=== PATIENT | female | born 1975 | race Caucasian/White ===

== ENCOUNTER 2023-08-02 13:33 | Emergency (ER) | payer OTHER, SELFPAY ==
--- NOTE | ~2023-08-02 | CT_ITS ---
EXAMINATION: CT HEAD WITHOUT CONTRAST (STROKE PROTOCOL) CLINICAL INFORMATION: Stroke protocol. Intermittent right-sided weakness COMPARISON: None available. TECHNIQUE: Contiguous axial imaging was performed from the skull base to vertex without intravenous administration of contrast. This CT examination was performed using dose optimization techniques as appropriate, variously including the following: *Automated exposure control *Adjustment of mA and/or kV according to patient size (this includes techniques or standardized protocols for targeted exams where dose is matched to indication/reason for exam; i.e. extremities or head) *Use of iterative reconstruction technique DLP: 703 mGy-cm FINDINGS: No evidence for acute hemorrhage or mass effect. Turner/white matter differentiation is maintained. The ventricular system appears unremarkable. No appreciable extra-axial collections. Mastoids are unremarkable. Skull base and calvarium intact. There are multiple scalp nodules, largest of which is a partially calcific nodule near the right occiput series 4 image 9 at 2 cm. There is an eggshell type calcification in the fourth ventricle series 6 image 59 at 7.5 mm, of uncertain etiology. CT/CT head for stroke IMPRESSION: No hemorrhage or mass effect. Other incidental findings as noted above. This critical result was discussed with Patti William at 1356 hours on 08/02/2023. It was ascertained that the content and urgency of the report was understood at the time of direct communication.
--- NOTE | ~2023-08-02 | CT_ITS ---
EXAMINATION: CT ANGIOGRAM HEAD CT ANGIOGRAM NECK CLINICAL INFORMATION: Reason for Exam intermitent R sided weakness, aphasia COMPARISON: Same-day CT head TECHNIQUE: Initial noncontrast grain farmer imaging of the head and neck was performed. Comparison is made with noncontrast head CT from earlier today. Test bolus sequences followed by intravenous administration 70 mL of Omnipaque 350. Helical imaging was performed in the axial plane from the aortic arch to the skull vertex. Delayed postcontrast imaging of the head was also performed. The data was processed at the nanotechnology engineering technologist's workstation for generation of MIP sequences. Angled MIPs and volume rendered reformatted images were also generated at an offline 3D workstation. Stenoses are assessed in accordance with Fernandes et al. Quantification of Carotid Stenosis on CT Angiography. AJR 2006. 27(1):13-19. This CT examination was performed using dose optimization techniques as appropriate, variously including the following: *Automated exposure control *Adjustment of mA and/or kV according to patient size (this includes techniques or standardized protocols for targeted exams where dose is matched to indication/reason for exam; i.e. extremities or head) *Use of iterative reconstruction technique DLP: 1518.02 mGy-cm mGy-cm FINDINGS: CT HEAD: Peripherally calcified focus in the fourth ventricle is indeterminate. Please see separately dictated CT scan head for additional findings. Calcified subcutaneous lesions are noted. CTA HEAD: Anterior circulation: Right internal carotid artery: No hemodynamically significant stenosis. Right middle cerebral artery: No hemodynamically significant stenosis. Right anterior cerebral artery: No hemodynamically significant stenosis. Left internal carotid artery: No hemodynamically significant stenosis. Left middle cerebral artery: No hemodynamically significant stenosis. Left anterior cerebral artery: Fusiform prominence of the A1-A2 junction/anterior communicating artery. Posterior circulation: Right vertebral artery: No hemodynamically significant stenosis. Left vertebral artery: No hemodynamically significant stenosis. Basilar artery: No hemodynamically significant stenosis. Right posterior cerebral artery: origin. Patent. Left posterior cerebral artery: No hemodynamically significant stenosis. No high flow vascular malformation or significant aneurysmal dilatation is visualized. The major dural venous sinuses are grossly within normal limits given arterial technique. CTA NECK: Aortic arch: Normal anatomy. Right common carotid artery: No hemodynamically significant stenosis. Right proximal internal carotid artery: No hemodynamically significant stenosis. Right mid/distal internal carotid artery: No hemodynamically significant stenosis. Left common carotid artery: No hemodynamically significant stenosis. Left proximal internal carotid artery: No hemodynamically significant stenosis. Left mid/distal internal carotid artery: No hemodynamically significant stenosis. Right vertebral artery: No hemodynamically significant stenosis. Left vertebral artery: Mild focal dilatation at the level of C2 (6-423) CT NECK: Prior thyroidectomy. 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 CT/CT angio head neck stroke IMPRESSION: CT HEAD: Peripherally calcified lesion in the fourth ventricle is indeterminate with differential considerations including lesions such as a subependymoma. Finding can be further evaluated by MRI with and without contrast. CTA NECK: No hemodynamically significant stenosis. Focal mild dilatation of the left vertebral artery at the level of C2 indeterminate. Attention on follow-up is suggested. CTA HEAD: No proximal vessel occlusion or high-grade stenosis. Results discussed with at 14:25 on 08/02/2023.
--- NOTE | 2023-08-02 13:38 | ECG_ITS ---
Test Reason : stroke Blood Pressure : / mmHG Vent. Rate : 064 BPM Atrial Rate : 064 BPM P-R Int : 140 ms QRS Dur : 094 ms QT Int : 446 ms P-R-T Axes : 032 047 027 degrees QTc Int : 460 ms Normal sinus rhythm Normal ECG No previous ECGs available Referred By: Patti William Electronically Signed By:JUAREZ LOPEZ MD
[2023-08-02 13:40] VITALS: BMI 38.9
--- NOTE | 2023-08-02 13:56 | ED.NEUROSD ---
HPI - Neuro Symptoms/Deficit General Chief Complaint: Stroke Stated Complaint: STROKE ALERT,R WEAK,DROOP,SPEECH DEF,LKWT 1237,-TH Source: patient and old records reviewed Mode of arrival: EMS Limitations: no limitations History of Present Illness HPI Narrative: 48 yo female with PMH of hypothyroidism, anxiety chronic fatigue syndrome who comes in as stroke alert - she was seen at [facility] for this recently and transferred to rehab. She notes 2+ weeks of intermittent spasms and tremors on the right side with aphasia then the spasms and symptoms will go away. Her face on the R droops. She states she had a full work up at [facility] and was told it was anxiety by a neurologist. Her symptoms today are no different than what she has had in the past and just worked up for as a stroke. Onset (ago): week(s) (2+ weeks but today's episode 1230pm) Location: speech, right face, right arm and right leg History of same: Yes Severity: moderate Quality: weak Relieving factors: time and rest Exacerbating factors: none Context: sudden onset On Anticoagulants: No Associated symptoms: other (spasms) Treatments Prior to Arrival: none Related Data Allergies Allergy/AdvReac Type Severity Reaction Status Date / Time codeine Allergy Unknown Unknown Verified 08/02/23 14:13 Review of Systems Review of Systems: Constitutional : No Fever, No Chills, No Fatigue ENT/Mouth : No sore throat, No Rhinorrhea Eyes: No Eye Pain, No Swelling, No Redness Cardiovascular : No Chest Pain, No SOB, No Dyspnea on Exertion Respiratory : No Cough, No Sputum Gastrointestinal : No Nausea, No Vomiting, No Diarrhea, No abdominal Pain Genitourinary : No Dysuria, No Urinary Frequency, No Hematuria, Musculoskeletal : No joint pain, No Myalgias, No Joint Swelling Skin : No Skin Lesions, No rash Neuro : pos Weakness, No Numbness, No Dizziness, no Headache, pos aphasia, pos spasm Psych : No Anxiety/Panic, No Depression Heme/Lymph: No Bruising, No Bleeding,No Lymphadenopathy Endocrine : No Polyuria, No Polydipsia All other systems reviewed and are negative [facility] Past Medical History Source: old records reviewed Medical History Anxiety Hypothyroidism Social History Social History (Updated 08/02/23 @ 14:22 by Patti William DO) Patient Tobacco Use Status: Never used Tobacco Smoked in Last 30 Days: No Use of substances other than those prescribed or required for medical reasons: No Advance Directives: No Advance Directives Information Provided: Yes Patient : Yes Physical Exam Vital Signs: Vital Signs: Last Vital Signs Temp 97.9 F 08/02/23 14:10 Pulse 68 08/02/23 14:10 Resp 16 08/02/23 14:10 BP 139/63 08/02/23 14:10 Pulse Ox 100 08/02/23 14:10 O2 Del Method Room Air 08/02/23 14:10 BMI result Body Mass Index 38.9 Course Course Course Narrative: initially had R sided facial droop and R arm and leg weakness with spasms and word finding difficulties then rapidly cycled in and out it was not consistent. Reevaluation(s) Reevaluation #1: back to baseline now recheck exam no clonus did talk to mom who states she does not feel this is conversion disorder Reevaluation #2: [facility] notes show extensive prior Neurology work up including up in [place] ruled out for MG, EMG unclear results, [facility] 2021 negative workup, also shows issues with care at [facility] and family discord with Neurologist and hospitalist. Reevaluation #3: signed out to Dr. Woodard pending neurology input Medications Administered Discontinued Medications Generic Name Dose Route Start Last Admin Trade Name Joseq PRN Reason Stop Dose Admin Iohexol 70 ml 08/02/23 14:10 08/02/23 14:11 Iohexol 350 Mg/Ml 100 Ml Infus..Btl IV 08/02/23 14:11 70 ml ONCE ONE Administration Lorazepam 1 mg 08/02/23 15:45 08/02/23 15:50 Lorazepam 2 Mg/Ml Vial IVPUSH 08/02/23 15:46 1 mg STAT STA Administration Medical Decision Making Medical Decision Making MDM Narrative: 48 yo female with anxiety, chronic fatigue syndrome and hypothyroidism here with c/o very odd symptoms of spasms on R side and then word finding difficulties and then R sided hemiparesis and visual disturbances that last minutes to hours and rapidly fluctuate for weeks. She is having another episode. She tells me she just had a full stroke workup at [facility] including MRI and was told it was anxiety by a Neurologist. Given her rapidlly fluctuating symptoms and givent it is 2+ weeks I am not concerned for ischemic stroke and she is not a candidate for TNK. Possible anxiety, even seizures seem odd given the rapidity and then she talks normal during the conversation, unsure if there is an inflammatory issue or medication issue either - CT head, CTA labs and records from [facility] consulted. Differential Diagnosis Differential Diagnoses: The differential diagnosis associated with the presentation includes anxiety, seizures, inflammatory condition Admission/Observation Consideration of admission/observation: Escalation of care including admission/observation considered will ask Neurology to see patient Consult Healthcare Provider Management of the patient was discussed with: Probate Paralegal Lab Data [facility] Lab Attestation statement: I reviewed the patient's lab results. 08/02/23 13:47 08/02/23 13:47 Labs: Lab Results 08/02/23 08/02/23 Range/Units 13:47 15:00 WBC 8.0 (4.8-10.8) X10*3/uL RBC 4.70 (4.20-5.50) X10*6/uL Hgb 14.0 (12.0-16.0) g/dl Hct 42.1 (37.0-47.0) % MCV 89.6 (80.0-98.0) fL MCH 29.8 (27.0-33.0) pg MCHC 33.3 (31.0-35.0) g/dl RDW 12.6 (11.0-16.0) % Plt Count 263 (160-400) X10*3/uL MPV 10.9 (9.4-12.3) fL Immature Gran % (Auto) 0.3 (0.0-0.4) % Neut % (Auto) 65.8 (45-73) % Lymph % (Auto) 26.9 (20-40) % [place] % (Auto) 5.8 (2-11) % Eos % (Auto) 0.8 (0-4) % Baso % (Auto) 0.4 (0-2) % Lymph # (Auto) 2.1 (1.2-4.9) X10*3/uL [place] # (Auto) 0.5 (0.1-1.2) X10*3/uL Eos # (Auto) 0.1 (0.0-0.4) X10*3/uL Baso # (Auto) 0.0 (0.0-0.2) X10*3/uL Abs Immat Gran (auto) 0.02 (0.00-0.03) X10*3/uL Absolute Neuts (auto) 5.3 (2.0-8.3) x10*3/uL Absolute Nucleated RBC 0.000 (0.0-0.012) X10*3/uL Nucleated RBC % (auto) 0.0 (0.0-0.2) /100WBC ESR 17 (0-20) MM/HR PT 12.5 (11.1-13.3) SEC INR 1.0 (0.9-1.1) Sodium 138 (135-145) mmol/L Potassium 3.7 (3.3-5.1) mmol/L Chloride 106 (96-108) mmol/L Carbon Dioxide 24 (22-29) mmol/L Anion Gap 12 (12-20) BUN 8 L (9-16) mg/dL Creatinine 0.66 (0.5-1.4) mg/dL Estim Creat Clear Calc 140.8 Estimated GFR > 60 Random Glucose 106 (60-115) mg/dL Calcium 8.6 (8.4-10.2) mg/dL Magnesium 2.2 (1.6-2.6) mg/dL Total Bilirubin 0.3 (0.0-1.0) mg/dL Direct Bilirubin 0.1 (0.0-0.5) mg/dL AST 12 (5-31) U/L ALT 17 (0-31) U/L Alkaline Phosphatase 48 (39-117) U/L Troponin I High Sens 7.2 (<3.5-17.0) ng/L C-Reactive Protein 2.06 H (< or = 0.50) mg/dL Total Protein 7.1 (6.5-8.0) g/dL Albumin 4.2 (3.5-5.0) g/dL Urine Opiates Screen Not Detected (Not Detect) Urine Fentanyl Screen Not Detected (Not Detect) Ur Barbiturates Screen Not Detected (Not Detect) Ur Phencyclidine Scrn Not Detected (Not Detect) Ur Amphetamines Screen Not Detected (Not Detect) U Benzodiazepines Scrn Not Detected (Not Detect) Urine Cocaine Screen Not Detected (Not Detect) U Marijuana (THC) Screen Not Detected (Not Detect) Ethyl Alcohol < 10 mg/dL COVID-19 (JANELLE) Negative (Negative) COVID-19 Clin Com See Note Independent Interpretation I performed an independent interpretation of an: EKG and CT Scan (no ICH) Interpretation: Rate: 64 Rhythm: NSR [place]: normal Normal P waves. Normal LORA. Normal QRS complex. ST T wave : normal, no ZAINAB qTC: normal prior studies: no acute ischemia The study has been interpreted contemporaneously by me. . Radiology Impression Discussion of test interpretation with radiology: I discussed test interpretation with the radiologist and I have reviewed the radiologist's reading. Radiologist Impression: no acute findings no ICH 156pm on dry CT scan CTA 225pm External Record Review External record reviewed: Outpatient record NIH Stroke Scale Internal: Initial- Upon Arrival Level of Consciousness: Alert Level of Consciousness Questions: Answers both questions correctly Level of Consciousness Commands: Performs both tasks correctly Best Gaze: Normal Visual: No visual loss Facial Palsy: Normal Motor Arm (Right): No drift Motor Arm (Left): No drift Motor Leg (Right): No drift Motor Leg (Left): No drift Limb Ataxia: Absent Sensory: Normal Best Language: No aphasia Dysarthia: Normal Extinction and Inattention: No abnormality Score: 0 Discharge Plan Discharge Clinical Impression: Tremors of nervous system Patient Disposition: Still a Patient
[2023-08-02 13:59] LABS: Basophils Percent Auto 0.4 % (0-2); Eosinophils Absolute Auto 0.1 X10*3/uL (0.0-0.4); Eosinophils Percent Auto 0.8 % (0-4); Hematocrit 42.1 % (37.0-47.0); Imm Gran Abs Auto 0.02 X10*3/uL (0.00-0.03); Imm Gran Pct Auto 0.3 % (0.0-0.4); Lymphocytes Absolute Auto 2.1 X10*3/uL (1.2-4.9); Lymphocytes Percent Auto 26.9 % (20-40); MANUAL DIFF FLAG NO; Mean Corpuscular HGB Conc 33.3 g/dl (31.0-35.0); Mean Corpuscular Hemoglobin 29.8 pg (27.0-33.0); Mean Corpuscular Volume 89.6 fL (80.0-98.0); Mean Platelet Volume 10.9 fL (9.4-12.3); Monocytes Absolute Auto 0.5 X10*3/uL (0.1-1.2); Monocytes Percent Auto 5.8 % (2-11); Neutrophils Absolute Auto 5.3 x10*3/uL (2.0-8.3); Neutrophils Percent Auto 65.8 % (45-73); Platelet Count 263 X10*3/uL (160-400); Red Cell Distribution Width 12.6 % (11.0-16.0)
[2023-08-02 14:10] VITALS: BP 139/63; PULSE 68; RESP 16; TEMP 36.6; O2SAT 100; BMI 38.9
[2023-08-02] MEDS: iohexoL 350 MG/ML 100 ML INFUS..BTL 70 ML IV (14:11)
[2023-08-02 14:12] LABS: Prothrombin Time 12.5 SEC (11.1-13.3)
[2023-08-02 14:23] LABS: Alanine Aminotransferase 17 U/L (0-31); Albumin Level 4.2 g/dL (3.5-5.0); Alkaline Phosphatase 48 U/L (39-117); Anion Gap 12 (12-20); Aspartate Amino Transferase 12 U/L (5-31); Bilirubin Direct 0.1 mg/dL (0.0-0.5); Bilirubin Total 0.3 mg/dL (0.0-1.0); Blood Urea Nitrogen 8 mg/dL (9-16); C Reactive Protein 2.06 mg/dL (< or = 0.50); Calcium 8.6 mg/dL (8.4-10.2); Carbon Dioxide 24 mmol/L (22-29); Chloride 106 mmol/L (96-108); Creatinine Clr Calc Pharmacy 140.8; Estimated Glomerular Filt Rate > 60; Ethanol < 10 mg/dL; Glucose Random 106 mg/dL (60-115); Magnesium 2.2 mg/dL (1.6-2.6); Potassium 3.7 mmol/L (3.3-5.1); Sodium 138 mmol/L (135-145); Total Protein 7.1 g/dL (6.5-8.0)
[2023-08-02 14:24] LABS: Troponin-I High Sensitivity 7.2 ng/L (<3.5-17.0)
--- OUTSIDE RECORDS SUMMARY | 2023-08-02 14:29 | XMS_ITS | Continuity of Care Document ---
Author Name Unknown Organization [facility]in Address [address] [place] [address]- Care Team Providers Care Hide Dropper Name Role Phone Jaspreet Guerrero DO Primary Care Physician [place] [facility] [place] 06/26/23 - 07/26/23 [facility] [address] [place] [address]- Allergies, Adverse Reactions, Alerts Substance Reaction Severity Status codeine Nausea Mild Active Medications Albuterol (Eqv-ProAir HFA) Inhalation, Every 6 hours, 0 Refills, Maintenance, 05/22/23 14:26:00 EDT, Partial fill upon patientrequest if the prescription is for a schedule II opioid drug. Start Date: 05/22/23 Status: Ordered Allergy (Loratadine) = 10 mg, By Mouth, Daily, 0 Refills, Maintenance, 05/22/23 14:27:00 EDT, Partial fill upon patient request if the prescription is for a schedule II opioid drug. Start Date: 05/22/23 Status: Ordered citalopram 20 mg oral tablet 20 mg, 1, tablet, By Mouth, Daily, Refills 0, Maintenance, 05/22/23 14:26:00 EDT, Partial fill uponpatient request if the prescription is for a schedule II opioid drug. Start Date: 05/22/23 Status: Ordered ethinyl estradiol-norethindrone 20 mcg-1 mg oral tablet 1 tablet, By Mouth, Daily, # 84 tablet, 3 Refills, Maintenance, 06/20/23 16:11:00 EDT, Tablet, [facility]/pharmacy #[id number], Partial fill upon patient request if the prescription is for a schedule II opioid drug., 1 tablet By Mouth Daily, 175, cm, 06/07/23 13:0... Start Date: 06/20/23 Status: Ordered levothyroxine 150 mcg (0.15 mg) oral tablet 1 tablet = 150 mcg, By Mouth, Daily, patient takes it 6 times a week, 0 Refills, Maintenance, 05/22/23 14:26:00 EDT, Partial fill upon patient request if the prescription is for a schedule II opioid drug. Start Date: 05/22/23 Status: Ordered Vitamin D3 2000 intl units oral capsule 1 capsule = 50 mcg, By Mouth, Daily, with food, # 100 capsule, 3 Refills, Maintenance, 06/07/23 13:40:00 EDT, Capsule, [facility]/pharmacy #[id number], Partial fill upon patient request if the prescription is fora schedule II opioid drug., 175, cm, 06/07/23 13:05... 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 Confirmed Active Long COVID Confirmed Active Constipation in female Confirmed Active Depression Confirmed Active Facial twitching Confirmed Active Chronic gastroesophageal reflux disease Confirmed Active H/O tinnitus Confirmed Active Hypersomnia Confirmed Active Migraine without aura Confirmed Active AGUILA (obstructive sleep apnea) Confirmed Active Perimenopause Confirmed Active Colon polyps Confirmed Active Bilateral sensorineural hearing loss Confirmed Active Severe obesity (BMI 35.0-39.9) with comorbidity Confirmed Active Weakness on right side of face Confirmed Active Social History Social History Type Response Smoking Status Never (less than 100 in lifetime) entered on: 05/22/23 Sex Female Patient Care team information Care Team Personnel Name: Charlette Bryan RN Position: [facility] RN Member Role: Primary Care Nurse Name: Madelaine Suazo Position: S RN Member Role: Primary Care Nurse Name: Izabel Sanchez RN Position: [facility] RN Member Role: Primary Care Nurse Name: Sandra Woodard RN Position: S RN Member Role: Primary Care Nurse Name: Jaspreet Guerrero DO Position: [facility] Physician - Primary Care Member Role: PCP Address: Address: [address] [place] [address]- Care Team Related Persons Name: KADEN PIZANO
--- OUTSIDE RECORDS SUMMARY | 2023-08-02 14:29 | XMS_ITS | Continuity of Care Document ---
Author Name Unknown Organization [facility] ter Address [address] [place] [id number]- Care Team Providers Care Dining Car Steward Name Role Phone Elizabeth LEE, Michelle Burns Primary Care Physician [place] [facility] [place]03[place]23 - 07/10/[address] [id number]- Encounter Diagnosis Unable to ambulate(Final) - 07/04/23 Aphasia(Final) - 07/04/23 Weakness(Final) - 07/04/23 Long COVID(Final) - 07/04/23 Chronic fatigue syndrome(Final) - 07/04/23 Chronic fatigue syndrome(Final) - 07/05/23 Long COVID(Final) - 07/05/23 Weakness(Final) - 07/05/23 Aphasia(Final) - 07/05/23 Discharge Disposition: A-Transfer SNF Attending Physician: Darrell Sarkar MD Admitting Physician: Petey Jarquin MD Referring Physician: Not on Staff, Referring MD Allergies, Adverse Reactions, Alerts Substance Reaction Severity [...] 3 Refills, Maintenance, 06/20/23 16:11:00 EDT, Tablet, [id number], Partial fill upon patient request if [...] opioid drug. Start Date: 05/22/23 Status: Ordered LORazepam 0.5 mg oral tablet 1 tablet = 0.5 mg, By Mouth, Every 8 hours, for 2 days, # 6 tablet, 0 Refills, Acute 07/12/23 11:39:00 EST, 07/10/23 11:39:00 EST, Tablet, Partial fill upon patient request if the prescription is fora schedule II opioid drug. Start Date: 07/10/23 Stop Date: 07/12/23 Status: Ordered Vitamin D3 2000 intl units oral capsule 1 capsule = 50 mcg, By Mouth, Daily, with food, # 100 capsule, 3 Refills, Maintenance, 06/07/23 13:40:00 EDT, Capsule, [id number], Partial fill upon patient request if the prescription is fora schedule II opioid drug., 175, cm, 06/07/23 13:05... 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 Confirmed Active Long COVID [...] on right side of face Confirmed Active Results Radiology Reports * Exam Date Time Procedure Performing Provider Status 07/05/23 5:17 AM MRI Brain W/O Contrast Erin Hyde; Griselda th (Verified) Notes: (MRI Brain W/O Contrast) Reason For Exam: Aphasia RESULT: MRI Brain W/O Contrast MRI Brain W/O Contrast INDICATION: Reason: Aphasia; Clinical Question(s): Infarction; Order Comment: Please see Reference Text for complete list of contraindications Infarction TECHNIQUE: MRI of the brain was performed without contrast utilizing sagittal T1, axial T2, axial FLAIR, axial SWAN, and axial DWI sequences. COMPARISON: CTA of the head and neck and CT scan of the head 07/04/2023 FINDINGS: BRAIN and EXTRA-AXIAL SPACES: The flow voids through the [place] of [place] are maintained, and thereis no restricted diffusion or abnormal susceptibility artifact. The brain parenchyma is normal in signal. The ventricles are normal in size. No mass effect or extra-axial fluid collection. The cervicomedullary junction is normal. EXTRACRANIAL SOFT TISSUES: Orbits are unremarkable. There are multiple nodular lesions within the right scalp subcutaneous fat which correlate with partially calcified and noncalcified foci on the prior CT, which can be correlated with physical examination. BONES: Marrow signal is preserved. IMPRESSION: No acute infarct. WSN: [id number] Ordering Physician: Casey mSiley Dictated By: Jorge Cruz MD Dictated Date/Time: 07/05/23 8:14 am Reviewed By: Jorge Cruz MD Signed By: Jorge Cruz MD Signed Date/Time: 07/05/23 8:14 am Transcribed By: MOSES Transcribed Date/Time: 07/05/23 8:10 am * Exam Date Time Procedure Performing Provider Status 07/04/23 5:[address] Angio Neck Michelle Green; Iglesia (Verified) Notes: (CT Angio Neck) Reason For Exam: Aneurysm, neck vessel(s);Other: RESULT: CT Angio Neck CT Angio Head, CT Angio Neck Hx of Present Illness: Pt reports monday after noon she had an onset of weakness, slow to speak, nausesa and body aches and feeling confused. She spent the weekend resting at her cousins house- call her dr julius who advised her to come to ED; Reason: Other:; Neuro deficit, acute, stroke suspected; Clinical Question(s): Other:; Hematoma Aneurysm / Other: TECHNIQUE: CT angiogram of the head and neck was performed after bolus administration of intravenous contrast. 100 mL of Omnipaque 300 was administered intravenously. Coronal and sagittal MIP reformatted images were obtained. Additional 3-D images were created on a separate workstation under concurrent supervision by the attending radiologist. All stenoses are measured using NASCET criteria. Weight-based protocol using automatic tube modulation was used to optimize exposure parameters. RADIATION DOSE PARAMETERS: CTDIvol Body: 12.07 mGy, DLP Body: 729 mGy*cm. COMPARISON: Noncontrast CT head performed concurrently. FINDINGS: CTA OF THE NECK: Arch: There is a three vessel aortic arch. The origins of the supra aortic vessels are patent. Right carotid system: The common carotid and cervical internal carotid arteries are patent. No stenosis (0%) by NASCET criteria. There is no dissection or aneurysm. Left carotid system: The common carotid and cervical internal carotid arteries are patent. No stenosis (0%) by NASCET criteria. There is no dissection or aneurysm. There is a co-dominant vertebral artery system. Right vertebral: No significant stenosis. No evidence of dissection or aneurysm. Left vertebral: No significant stenosis. No evidence of dissection or aneurysm. Other: Soft tissues and bones: No evidence of lymphadenopathy or mass. Thyroid is surgically absent. Visualized lung apices are clear. Mild degenerative changes of the cervical spine are noted, without acute osseous abnormality. A hemangioma is incidentally noted in the C6 vertebral body. CTA OF THE HEAD: Anterior circulation: Bilateral intracranial ICAs and their BETI and MCA branches are patent. There is no significant stenosis, proximal cutoff, aneurysm, or vascular malformation. Posterior circulation: Bilateral vertebral arteries, the basilar artery, and bilateral PICA, SCA, and HAIR BOILER OPERATOR branches are patent. There is predominantly supply to the right HAIR BOILER OPERATOR with hypoplastic right P1 segment. There is no significant stenosis, proximal cutoff, aneurysm, or vascular malformation. Veins: Major dural venous sinuses are patent. Other: Soft tissues and bones: No midline shift or effacement of the basal cisterns. No space-occupying hemorrhage. No territorial loss of turner-white matter differentiation. Orbits are unremarkable. There is mild scattered mucosal thickening in the paranasal sinuses without fluid levels. Mastoids are clear. Multiple well- circumscribed rounded nodules are seen in the scalp, including right parietal scalp and suboccipital scalp, some of which demonstrate internal calcification. This may reflect epidermal inclusion cysts or sebaceous cysts. IMPRESSION: No proximal occlusion or high grade stenosis in the major arteries of the head and neck. A similar preliminary report was provided by Laila. WSN: [id number] Ordering Physician: Norbert Gold Dictated By: Sharlene Rodriguez MD Dictated Date/Time: 07/05/23 8:12 am Reviewed By: Sharlene Rodriguez MD Signed By: Sharlene Rodriguez MD Signed Date/Time: 07/05/23 8:12 am Transcribed By: MOSES Transcribed Date/Time: 07/05/23 8:04 am * Exam Date Time Procedure Performing Provider Status 07/04/23 5:[address] Angio Head Michelle Green; Auth (Verified) Notes: (CT Angio Head) Reason For Exam: Neuro deficit, acute, stroke suspected;Other: RESULT: CT Angio Head CT Angio Head, CT Angio Neck Hx of Present Illness: Pt reports monday after noon she had an onset of weakness, slow to speak, nausesa and body aches and feeling confused. She spent the weekend resting at her cousins house- call her dr julius who advised her to come to ED; Reason: Other:; Neuro deficit, acute, stroke suspected; Clinical Question(s): Other:; Hematoma Aneurysm / Other: TECHNIQUE: CT angiogram of the head and neck was performed after bolus administration of intravenous contrast. 100 mL of Omnipaque 300 was administered intravenously. Coronal and sagittal MIP reformatted images were obtained. Additional 3-D images were created on a separate workstation under concurrent supervision by the attending radiologist. All stenoses are measured using NASCET criteria. Weight-based protocol using automatic tube modulation was used to optimize exposure parameters. RADIATION DOSE PARAMETERS: CTDIvol Body: 12.07 mGy, DLP Body: 729 mGy*cm. COMPARISON: Noncontrast CT head performed concurrently. FINDINGS: CTA OF THE NECK: Arch: There is a three vessel aortic arch. The origins of the supra aortic vessels are patent. Right carotid system: The common carotid and cervical internal carotid arteries are patent. No stenosis (0%) by NASCET criteria. There is no dissection or aneurysm. Left carotid system: The common carotid and cervical internal carotid arteries are patent. No stenosis (0%) by NASCET criteria. There is no dissection or aneurysm. There is a co-dominant vertebral artery system. Right vertebral: No significant stenosis. No evidence of dissection or aneurysm. Left vertebral: No significant stenosis. No evidence of dissection or aneurysm. Other: Soft tissues and bones: No evidence of lymphadenopathy or mass. Thyroid is surgically absent. Visualized lung apices are clear. Mild degenerative changes of the cervical spine are noted, without acute osseous abnormality. A hemangioma is incidentally noted in the C6 vertebral body. CTA OF THE HEAD: Anterior circulation: Bilateral intracranial ICAs and their BETI and MCA branches are patent. There is no significant stenosis, proximal cutoff, aneurysm, or vascular malformation. Posterior circulation: Bilateral vertebral arteries, the basilar artery, and bilateral PICA, SCA, and HAIR BOILER OPERATOR branches are patent. There is predominantly supply to the right HAIR BOILER OPERATOR with hypoplastic right P1 segment. There is no significant stenosis, proximal cutoff, aneurysm, or vascular malformation. Veins: Major dural venous sinuses are patent. Other: Soft tissues and bones: No midline shift or effacement of the basal cisterns. No space-occupying hemorrhage. No territorial loss of turner-white matter differentiation. Orbits are unremarkable. There is mild scattered mucosal thickening in the paranasal sinuses without fluid levels. Mastoids are clear. Multiple well- circumscribed rounded nodules are seen in the scalp, including right parietal scalp and suboccipital scalp, some of which demonstrate internal calcification. This may reflect epidermal inclusion cysts or sebaceous cysts. IMPRESSION: No proximal occlusion or high grade stenosis in the major arteries of the head and neck. A similar preliminary report was provided by [facility]. WSN: [id number] Ordering Physician: Norbert Gold Dictated By: Sharlene Rodriguez MD Dictated Date/Time: 07/05/23 8:12 am Reviewed By: Sharlene Rodriguez MD Signed By: Sharlene Rodriguez MD Signed Date/Time: 07/05/23 8:12 am Transcribed By: MOSES Transcribed Date/Time: 07/05/23 8:04 am * Exam Date Time Procedure Performing Provider Status 07/04/23 5:[address] Head/Brain W/O Contrast Michelle Green; Iglesia (Verified) Notes: (CT Head/Brain W/O Contrast) Reason For Exam: Neuro deficit, acute, stroke suspected;Other: RESULT: CT Head/Brain W/O Contrast CT Head/Brain W/O Contrast INDICATION: Hx of Present Illness: Pt reports monday after noon she had an onset of weakness, slow to speak, nausesa and body aches and feeling confused. She spent the weekend resting at her cousins house- call her dr today who advised her to come to ED; Reason: Other:; Neuro deficit, acute, strokesuspected; Clinical Question(s): Other:; Hematoma Infarction TECHNIQUE: Noncontrast head CT using axial technique and reconstructed in axial and coronal planes.Iterative reconstruction techniques are used to optimize dose and image quality. CTDIvol Head: 46.40 mGy, DLP Head: 772 mGy*cm. COMPARISON: None. FINDINGS: Hand Umbrella Tipper view findings, lines and tubes: None. BRAIN AND EXTRA-AXIAL SPACES: No parenchymal hemorrhage, midline shift, or mass effect. Turner-white matter differentiation is wellpreserved. No acute infarct. Ventricles, sulci, and basilar cisterns are normal. No white matter lesions. No subarachnoid hemorrhage. No subdural or epidural collection. Small incidental calcification along the inferior aspect of the fourth ventricle just above the whole back possibly representing calcified choroid plexus. CALVARIUM, SKULL BASE, AND SOFT TISSUES: No fractures or suspicious bony lesions. The paranasal sinuses and mastoid air cells are clear. Visualized orbits and globes are intact. The extracranial soft tissues are unremarkable. IMPRESSION: No acute intracranial pathology. No CT evidence for acute ischemic infarction. Dr. Gold notified of results at time of dictation. WSN: [id number] Ordering Physician: Norbert Gold Dictated By: Braulio Chang MD Dictated Date/Time: 07/04/23 5:10 pm Reviewed By: Braulio Chang MD Signed By: Braulio Chang MD Signed Date/Time: 07/04/23 5:10 pm Transcribed By: MOSES Transcribed Date/Time: 07/04/23 5:06 pm Vital Signs Most recent to oldest [Reference Range]: 1 2 3 Height 175 cm (07/10/23 1:06 PM) 175 cm (07/10/23 10:39 AM) 175 cm (07/10/23 7:07 AM) Weight 120.3 kg (07/06/23 11:51 AM) 120.3 kg (07/06/23 6:18 AM) 120.3 kg (07/06/23 4:20 AM) Oxygen Saturation [94-100 %] 100 % (07/10/23 1:06 PM) 98 % (07/10/23 10:39 AM) 98 % (07/10/23 7:07 AM) Pulse Rate [55-90 bpm] 73 bpm (07/10/23 1:06 PM) 65 bpm (07/10/23 10:39 AM) 63 bpm (07/10/23 7:07 AM) Body Mass Index [18.5-24.99 kg/m2] 39.28 kg/m2 *>HHI* (07/06/23 11:51 AM) 39.28 kg/m2 *>HHI* (07/06/23 6:18 AM) 39.28 kg/m2 *>HHI* (07/06/23 4:20 AM) Blood Pressure [90-138/55-84 mm Hg] 158/84mm Hg *H* (07/10/23 1:06 PM) 126/68mm Hg (07/10/23 10:39 AM) 126/58mm Hg (07/10/23 7:07 AM) Respiratory Rate [16-30 br/min] 18 br/min (07/10/23 1:06 PM) 18 br/min (07/10/23 10:39 AM) 20 br/min (07/10/23 7:07 AM) Temperature [96.8-100.4 DegF] 98.3 DegF (07/10/23 1:06 PM) 98.3 DegF (07/10/23 10:39 AM) 98.1 DegF (07/10/23 7:07 AM) Mode of Delivery (Oxygen) Room air (07/10/23 1:06 PM) Room air (07/10/23 10:39 AM) Room air (07/10/23 7:07 AM) Blood pressure sites Arm, left (07/10/23 1:06 PM) Arm, left (07/10/23 10:39 AM) Arm, left (07/10/23 7:07 AM) Temperature Route Oral (07/10/23 1:06 PM) Oral (07/10/23 10:39 AM) Oral (07/10/23 7:07 AM) Dry Weight 120.3 kg (07/06/23 11:51 AM) 120.3 kg (07/06/23 6:18 AM) 120.3 kg (07/06/23 4:20 AM) Weight Obtained Via Patient/family state d (07/05/23 10:00 AM) Dry Weight Obtained Via Patient/family s tated (07/03/23 3:39 PM) Social History Social History Type Response Smoking Status Never (less than 100 in lifetime) entered on: 05/22/23 Sex Female Admission evaluation note * Mathew Alexis MD, [facility]: PERFORM, MODIFY, MODIFY, MODIFY, MODIFY, MODIFY, MODIFY, MODIFY, MODIFY, MODIFY, MODIFY, MODIFY, MODIFY, MODIFY, MODIFY Event Display: Admission Note Authored Date: [id number] Patient: ??ELICEO CASTLE ? Age:??48 Years?Sex:??Female?:??1975?? Chief Complaint/Reason for Consultation Right sided weakness and aphasia History of Present Illness 48-year-old female with a past medical history of hypothyroidism, chronic fatigue syndrome, reported long COVID presents to the ED for right-sided weakness, aphasia, and??word finding difficulties. Patient reports that on??Monday??06/30 afternoon she started??to have??weakness??in the right arm, hand??and leg??where she was unable to walk. Along with these symptoms,??she reported??having??left sided facial spasms with mouth drooping??that lasted for 10 minutes, she also had??drooping??of the right eye lid for the same duration.?Her symptoms were also associated with??slurred speech,??dizzin ess,??and difficulty??in??chewing/swallowing food. Of note, the patient reported??that??she has been experiencing??weakness and fatigue ever since??her COVID-19??diagnosis in??October??2021, stevan feels that her recent symptoms are much worse now. ?? Upon arrival to the ED, the patient was afebrile, heart rate was 74 bpm, blood pressure was elevated at 145/75, patient was saturating well on room air at 100%.??Complete blood count was within normal limits, electrolytes within normal limits, creatinine was normal at 0.6, blood glucose was elevated at 143, TSH was normal at 1.26.?? Urinalysis showed slight bacteriuria and leukocytes, in additionto RBCs. 12-lead ECG did not show ischemic changes.??Head CT was negative for acute ischemic infarction,??head CT angiogram was done and the wet reading was negative for stenosis or dissection.??Patient received 975 mg of acetaminophen once, Reglan 10 mg IV once, and 1 L bolus of 0.9 normal saline. ?? Upon my evaluation, the patient is hemodynamically stable, has slow speech and does not show acute neurologic deficits except for difficulty in lifting her right leg. She denies chest pain, shortness of breath, palpitations, or dizziness, abdominal pain, or urinary symptoms. Review of Systems - CONSTITUTIONAL: Denies weight loss, fever and chills. - HEENT: Denies changes in vision and hearing. - RESPIRATORY: Denies SOB and cough. - CV: Denies palpitations and chest pain. - GI: +Constipation. Denies abdominal pain, nausea, vomiting, and diarrhea. - : Denies dysuria and urinary frequency. - MSK:??+Neck??heaviness. Denies??joint pain. - SKIN: Denies rash and pruritus. - NEUROLOGICAL: Denies headache and syncope. - PSYCHIATRIC: Denies recent changes in mood. Denies anxiety and depression. Objective Vital Signs?? Temperature: 98.4 DegF (07/04/23 19:30:00) Temperature Route: Oral (07/04/23:30:00) Pulse Rate: 71 bpm (07/04/23:30:00) Respiratory Rate:??15 br/min??Low (07/04/23 19:30:00) Systolic Blood Pressure: 129 mm Hg (07/04/23 19:30:00) Diastolic Blood Pressure: 66 mm Hg (07/04/23:30:00) Blood pressure sites: Arm, left (07/04/23 19:30:00) Mean Arterial Pressure: 87 mm Hg (07/04/23 19:30:00) Pulse Pressure: 63 mm Hg (07/04/23 19:30:00) Oxygen Saturation: 98 % (07/04/23 19:30:00) Mode of Delivery (Oxygen): Room air (07/04/23 19:30:00) Early Warning Score: 0 (07/04/23 20:24:18) ? Physical Exam - GENERAL: Alert and oriented x3. No acute distress. - HEENT: Normocephalic and atraumatic. No scleral icterus. No conjunctival pallor. - LUNGS: Clear to auscultation bilaterally. No wheezes, rales or rhonchi. - CARDIOVASCULAR: Regular rate and rhythm. Normal S1+S2??without murmurs. No JVD. - ABDOMEN: Soft, non-tender and non-distended. No palpable masses. - EXTREMITIES: No edema. Non-tender. - SKIN: No rashes or lesions. -??NEUROLOGIC: No focal neurological deficits. Muscle strength 4/5 in the right side. Sensation is intact throughout. Finger to nose exam is normal. Pupillary exam is normal. - PSYCHIATRIC: Appropriate mood and affect. Assessment/Plan 48-year-old female with a past medical history of hypothyroidism, chronic fatigue syndrome, reported long COVID presents to the ED for right-sided weakness, aphasia, and??word finding difficulties for 5 days. Patient was admitted for stroke rule out vs TIA. ?? Diagnoses Unable to ambulate ??(R26.2) 1. ??Aphasia ??(R47.01) 2. ??Weakness ??(R53.1) 3. ??Long COVID ??(U09.9) 4. ??Chronic fatigue syndrome ??(G93.32) 5. ??Hypothyroidism ??(E03.9) ?? Intermittent Aphasia (R47.01) Rule out stroke vs TIA Patient currently has no neurologic deficits. Infectious etiology is less likely given no fevers, normal WBC count,??no recent sick contacts,??and no signs of meningitis. Head CT was negative for acute ischemic infarction; Head??CT angiogram was done and the wet readingwas negative for stenosis or dissection. NIH stroke scale = 0 ?? Plan: -Brain MRI w/o contrast -Aspirin 81mg daily -Ordered lipid panel and HbA1c -Consider starting statin after lipid panel result -Neurology consult placed -Neuro checks q4hrs ?? Weakness (R53.1) Chronic fatigue syndrome (G93.32) Long COVID (U09.9) Patient has a history of generalized weakness and fatigue ever since her diagnosis with COVID-19 inFebruary 2021. ?? Plan: -Monitor clinically -Consider PT/PM&R consult ?? Hypothyroidism ??(E03.9) TSH stable at 1.26. Patient is on Levothyroxine 150mcg 6 days a week. ?? Plan: -Follow up TSH level ? Chronic Medical Conditions: Anxiety: Continue Ativan 0.5mg q8hrs PRN Depression: Continue Citalopram 30mg daily ? Quality Measures: Code status: Full code, confirmed with patient at bedside DVT prophylaxis: Currently none - Patient has no risk factors for DVT Diet: Regular - Patient passed swallow evaluation ?? Patient's case and management??discussed with attending, Dr. Houser ?? Casey Brand??[facility] PGY-1 Histories Allergies Allergies ?(Active and Proposed Allergies Only) codeine? (Severity: Mild, Onset: Unknown) ?Reactions: Nausea ? Past Medical History/Problem List Anxiety Depression Long COVID Myalgic encephalomyelitis/chronic fatigue syndrome Severe obesity (BMI 35.0-39.9) with comorbidity ? Past Surgical History No surgery history documented. ? Social History Alcohol Details:??Use: Never. Substance Abuse Details:??Use: Never. Tobacco Details:??Use: Never. Electronic Cigarette/Vaping Details:??Electronic Cigarette Use: Never. ? Family History No family??history of CVA or MS. ? Medications Home Medications Albuterol (Albuterol (Eqv-ProAir HFA))?Inhalation?Every 6 hours Cholecalciferol (Vitamin D3 2000 intl units oral capsule)?1?capsule?50?Microgram?By Mouth?Daily?with food Citalopram (citalopram 20 mg oral tablet)?20?Milligram?1?tablet?By Mouth?Daily Ethinyl Estradiol / Norethindrone (ethinyl estradiol-norethindrone 20 mcg-1 mg oral tablet)?1?tab(s)?By Mouth?Daily Levothyroxine (levothyroxine 150 mcg (0.15 mg) oral tablet)?1?tab(s)?150?Microgram?By Mouth?Daily Loratadine (Allergy (Loratadine))?10?Milligram?By Mouth?Daily Lorazepam (LORazepam 0.5 mg oral tablet)?1?tab(s)?0.5?Milligram?By Mouth?Every 8 hours ? Results Recent Labs BLOOD COUNT & DIFF WBC 8.8 k/mm3 ()?? 07/03/2023 18:50 RBC 4.99 m/mm3 ()?? 07/03/2023 18:50 Hgb 15.1 Gm/dL ()?? 07/03/2023 18:50 Hct 44.7 % ()?? 07/03/2023 18:50 MCV 89.6 femtoliters ()?? 07/03/2023 18:50 MCH 30.3 pg ()?? 07/03/2023 18:50 MCHC 33.8 g/dL ()?? 07/03/2023 18:50 Platelet Count 299 k/mm3 ()?? 07/03/2023 18:50 RDW-SD 41.3 femtoliters ()?? 07/03/2023 18:50 MPV 10.9 femtoliters ()?? 07/03/2023 18:50 Nucleated RBC (Automated) 0.0 #/100 WBC'S ()?? 07/03/2023 18:50 Abs. NRBC 0.0 k/mm3 ()?? 07/03/2023 18:50 Abs. Neut 6.2 k/mm3 ()?? 07/03/2023 18:50 Abs. Lymph 2.1 k/mm3 ()?? 07/03/2023 18:50 Abs. [place] 0.4 k/mm3 ()?? 07/03/2023 18:50 Abs. Eo 0.1 k/mm3 ()?? 07/03/2023 18:50 Abs. Baso 0.0 k/mm3 ()?? 07/03/2023 18:50 Neut % 69.9 % ()?? 07/03/2023 18:50 Lymph % 23.9 % ()?? 07/03/2023 18:50 [place] % 4.6 % ()?? 07/03/2023 18:50 Eos % 0.8 % ()?? 07/03/2023 18:50 Baso % 0.5 % ()?? 07/03/2023 18:50 Imm Gran 0.3 % ()?? 07/03/2023 18:50 Abs. Imm Gran 0.0 k/mm3 ()?? 07/03/2023 18:50 ?? CHEM GENERAL Sodium 139 mmol/L ()?? 07/03/2023 18:50 Potassium 3.7 mmol/L ()?? 07/03/2023 18:50 Chloride 103 mmol/L ()?? 07/03/2023 18:50 Bicarbonate Level 23 mmol/L ()?? 07/03/2023 18:50 Anion Gap 13 ()?? 07/03/2023 18:50 Glucose Level 90 mg/dL ()?? 07/03/2023 18:50 Glucose, POC 143 mg/dL (High)?? 07/04/2023 19:08 BUN 7 mg/dL ()?? 07/03/2023 18:50 Creatinine-Blood 0.6 mg/dL ()?? 07/03/2023 18:50 Estimated GFR Creatinine 108 ML/MIN/1.73 M2 ()?? 07/03/2023 18:50 Calcium 9.1 mg/dL ()?? 07/03/2023 18:50 ?? ENDOCRINE/TUMOR MARKER TSH 1.26 uIU/mL ()?? 07/03/2023 18:50 Serum Qual NEGATIVE mIU/mL ()?? 07/03/2023 18:50 ?? UA/URINALYSIS Appear/Color, Urine LIGHT YELLOW ()?? 07/04/2023 15:00 Specific Van, Urine 1.012 ()?? 07/04/2023 15:00 pH, Urine 6.0 ()?? 07/04/2023 15:00 Albumin, Urine NEGATIVE ()?? 07/04/2023 15:00 Glucose, Urine NEGATIVE ()?? 07/04/2023 15:00 Ketones, Urine NEGATIVE ()?? 07/04/2023 15:00 Bilirubin, Urine NEGATIVE ()?? 07/04/2023 15:00 Hemoglobin, Urine 1+ (Abnormal)?? 07/04/2023 15:00 Nitrite, Urine NEGATIVE ()?? 07/04/2023 15:00 Leukocyte, Urine 2+ (Abnormal)?? 07/04/2023 15:00 Urobilinogen NORMAL mg/dL ()?? 07/04/2023 15:00 WBC's, Urine 3 /HPF ()?? 07/04/2023 15:00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 Discuss any questions related to medications with your provider. What How Much When Instructions Next Dose Changed Lorazepam (LORazepam 0.5 mg oral tablet) 1 tab(s) Oral Every 8 hours Duration: 2 Days Printed Prescription was as needed while in the hospital Unchanged Albuterol (Albuterol (Eqv-ProAir HFA)) Inhalation Every 6 hours resume home schedule Unchanged Cholecalciferol (Vitamin D3 2000 intl units oral capsule) 1 capsule Oral Daily with food ?? 07/11 tomorrow morning Unchanged Citalopram (citalopram 20 mg oral tablet) 1 tab(s) Oral Daily 07/11 tomorrow morning Unchanged Ethinyl Estradiol / Norethindrone (ethinyl estradiol-norethindrone 20 mcg-1 mg oral tablet) 1 tab(s) Oral Daily 07/11 tomorrow morning Unchanged Levothyroxine (levothyroxine 150 mcg (0.15 mg) oral tablet) 1 tab(s) Oral Daily patient takes it 6 times a week ?? 07/11 tomorrow morning Unchanged Loratadine (Allergy (Loratadine)) 10 Milligram Oral Daily 07/11 tomorrow morning Test Results Below is a partial list of the most recent Laboratory test results done prior to this discharge. You may have had other tests and procedures not included in this list. Please discuss all test resultswith your provider. Est Creatinine Clearance - 116.81 mL/min (07/03/2023) Basic Metabolic Panel (07/05/2023) ???Sodium - 139 mmol/L???Potassium - 3.5 mmol/L???Chloride - 106 mmol/L???Bicarbonate Level - 22 mmol/L???Anion Gap - 11???Glucose Level - 98 mg/dL???BUN - 6 mg/dL???Creatinine-Blood - 0.6 mg/dL???Estimated GFR Creatinine - 112 ML/MIN/1.73 M2???Calcium - 8.0 mg/dL CBC (07/05/2023) ???WBC - 8.4 k/mm3???RBC - 4.25 m/mm3???Hgb - 13.1 Gm/dL???Hct - 37.9 %???MCV - 89.2 femtoliters???MCH - 30.8 pg???MCHC - 34.6 g/dL???Platelet Count - 237 k/mm3???RDW-SD - 42.0 femtoliters???MPV - 11.1 femtoliters???Nucleated RBC (Automated) - 0.0 #/100 WBC'S???Abs. NRBC - 0.0 k/mm3 CBC w/ Differential (07/03/2023) ???WBC - 8.8 k/mm3???RBC - 4.99 m/mm3???Hgb - 15.1 Gm/dL???Hct - 44.7 %???MCV - 89.6 femtoliters???MCH - 30.3 pg???MCHC - 33.8 g/dL???Platelet Count - 299 k/mm3???RDW-SD - 41.3 femtoliters???MPV - 10.9 femtoliters???Nucleated RBC (Automated) - 0.0 #/100 WBC'S???Abs. NRBC - 0.0 k/mm3???Abs. Neut - 6.2 k/mm3???Abs. Lymph - 2.1 k/mm3???Abs. [place] - 0.4 k/mm3???Abs. Eo - 0.1 k/mm3???Abs. Baso - 0.0 k/mm3???Neut % - 69.9 %???Lymph % - 23.9 %???[place] % - 4.6 %???Eos % - 0.8 %???Baso % - 0.5 %???Imm Gran - 0.3 %???Abs. Imm Gran - 0.0 k/mm3 COVID-19, RSV, and Flu A/B, Rapid PCR (07/04/2023) ???Influenza A PCR - NEGATIVE???Influenza B PCR - NEGATIVE???RSV PCR - NEGATIVE???COVID-19 PCR Specimen Source - NASAL???COVID-19 PCR Result - NEGATIVE GLUCOSE POC (07/04/2023) ???Glucose, POC - 143 mg/dL HEMOGLOBIN A1C (07/03/2023) ???Hemoglobin A1C (Monitoring) - 5.1 % LIPID PANEL (07/03/2023) ???Cholesterol - 187 mg/dL???Triglycerides - 105 mg/dL???HDL Cholesterol - 55 mg/dL???LDL Cholesterol - 111 mg/dL???Non HDL Cholesterol - 132 mg/dL Magnesium Level (07/05/2023) ???Magnesium - 2.2 mg/dL Phosphorus Level (07/05/2023) ???Phosphorus - 2.6 mg/dL Serum Qualitative (07/03/2023) ??? Serum Qual - NEGATIVE TSH WITH REFLEX TO FT4 (07/03/2023) ???TSH - 1.26 uIU/mL Urinalysis w/hold for Urine Culture (07/04/2023) ???Appear/Color, Urine - LIGHT YELLOW???Specific Van, Urine - 1.012???pH, Urine - 6.0???Albumin, Urine - NEGATIVE???Glucose, Urine - NEGATIVE???Ketones, Urine - NEGATIVE???Bilirubin, Urine - NEGATIVE???Hemoglobin, Urine - 1+???Nitrite, Urine - NEGATIVE???Leukocyte, Urine - 2+???Urobilinogen - NO RMAL???WBC's, Urine - 3 /HPF???RBC's, Urine - 4 /HPF???Bacteria - SLIGHT???Squamous Epith - 2 /HPF???Mucus - SLIGHT???Hold Urine Culture - Testing available 48 hours from time of collection. Allergies (NKA means No Known Allergies) codeine??(Nausea) Problems Active Problems??(17) Anxiety?? Bilateral sensorineural hearing loss?? Chronic gastroesophageal reflux disease?? Colon polyps?? Constipation in female?? Depression?? Facial twitching?? H/O tinnitus?? Hypersomnia?? Hypothyroidism, acquired?? Long COVID?? Migraine without aura?? Myalgic encephalomyelitis/chronic fatigue syndrome?? AGUILA (obstructive sleep apnea)?? Perimenopause?? Severe obesity (BMI 35.0-39.9) with comorbidity?? Weakness on right side of face?? Education Materials Below is the list of Educational Leaflet Providered with your Discharge Instructions. Valuables and Belongings I fully understand and agree that [facility] accepts no responsibility for all my personal property including clothing, toilet articles, radios, jewelry, dentures, hearing aids, rings, money, or any other property that is in my possession or is brought to me after admission. I understand certain valuables may be placed in a hospital safe for a short period of time. I understand that the hospital is not liable for loss or damage due to accident, fire, or other natural occurrence while said property is in the safe. I accept full responsibility for any personal property that I keep with me, and will not hold the hospital responsible in case of loss or disappearance. I acknowledge that i have been encouraged to send valuables and belongings home. ?? Review of Valuable and Belonging List: With patient Date for Pt to Sign Valuables/Belongings: 07/10/23 13:06:00 ?? Other Discharge Information ? Case Management Discharge Plan?? Discharge Plan?? Discharge Agency Information?? Discharge Level of Care at Discharge: [facility] facility Name of Agency #1: [facility] Discharge Transportation Arranged: Family Service Categories #1: Occupational Therapy, Physical Therapy, Prison Discharge Arranged Transport Date/Time: 07/10/23 16:00:00 Service Comments #1: You will be discharged to rehab today, sister to transport home Discharge Nursing Homes/Rehab Facilities: [facility] ?? Discharge VNA/Hospice/Home Care: [facility] [phone] ? Pulmonary Rehab Status?? Pulmonary Rehab Discharge Status?? Respiratory Rate: 18 br/min ? Common Emergency Awareness Tips IS IT A STROKE? Act FAST and Check for these signs: FACE Does the face look uneven? ARM Does one arm drift down? SPEECH Does their speech sound strange? TIME Call at any sign of stroke ?? Heart Attack Signs Chest discomfort: Most heart attacks involve discomfort in the center of the chest and lasts more than a few minutes, or goes away and comes back. It can feel like uncomfortable pressure, squeezing, fullness or pain. Discomfort in upper body: Symptoms can include pain or discomfort in one or both arms, back, neck, jaw or stomach. Shortness of breath: With or without discomfort. Other signs: Breaking out in a cold sweat, nausea, or lightheaded. Remember, MINUTES DO MATTER. If you experience any of these heart attack warning signs, call to get immediate medical attention! ?? Smoking can increase your chances of developing chronic health problems and can cause harmful effects to other family members in your house. If you smoke, you are strongly encouraged to quit. Please call [facility] Parental Health Link at [phone] or [phone] ([phone]) or log in to [email or web address] for referrals to smoking cessation programs. ?? 818 Suicide & Crisis Lifeline is available 27/03 if you or someone you know needs to find a reason to keep living. By calling 766 you'll be connected to a skilled, trained counselor at a crisis center in your area. INPATIENT DISCHARGE INSTRUCTIONS SIGNATURE PAGE ELICEO CASTLE Location:[facility] Registration Date and Time:07/03/2023 15:19 EDT Primary Care Physician: Michelle Johnson NP, Attending Physician: Darrell Sarkar MD, I KRISTI CASTLEA, have received the above patient education materials/instructions and have verbalized understanding. If ambulance or transport services are being used I further acknowledge being given a choice of service. ?? If you need to contact me, please call me at this number: . Patient/Office Clerk Routine Name: Patient/Office Clerk Routine Signature: Relationship to Patient: Witness Name/Signature: Date: * Aleida Romeo RN: PERFORM, SIGN, VERIFY Event Display: Patient Education Handout Authored Date: * Event Display: Discharge/Transfer Note Hospital Authored Date: * Jayla Montano: PERFORM, SIGN, VERIFY Event Display: Case Management Discharge Plan Authored Date: Patient: ELICEO CASTLE Age: 48 years Sex: Female : 1975 Associated Diagnoses: None Author: Jayla Montano Discharge Plan Case Management Discharge Plan : Case Management Discharge Plan Data 07/05/2023 14:10 EDT Discharge Level of Care at Discharge Homehealth/VNA Discharge VNA/Hospice/Home Care [place] [phone] Name of Agency #1 [place] [phone] Service Categories #1 Occupational Therapy, Physical Therapy Service Comments #1 You are being discharged to home with services for PT/OT from [facility] [phone]. They will contact you in 1-2 days for an appt. If you do not hear from them -please contact them at the number provided Patient Care team information Care Team Personnel Name: Michelle Johnson NP Position: [facility] PCO Associate Professional Member Role: PCP Address: Address: [address] [place] [address]- Name: Charlette Bryan RN Position: [facility] RN Member Role: Primary Care Nurse Name: Madelaine Suazo Position: [facility] RN Member Role: Primary Care Nurse Name: Izabel Sanchez RN Position: [facility] RN Member Role: Primary Care Nurse Name: Sandra Woodard RN Position: [facility] RN Member Role: Primary Care Nurse Name: Gianluca PAREDES Attending Position: [facility] ED Medicine MD Name: Sharon Key Position: [facility] ED TA [facility] Member Role: Patient Care Provider Name: Enoc Guerrero RN Position: [facility] ED RN W/OE and Tasks Member Role: Patient Care Provider Care Team Related Persons Name: MICHELLE PIZANO
--- OUTSIDE RECORDS SUMMARY | 2023-08-02 14:29 | XMS_ITS | Continuity of Care Document ---
Author Name Unknown Organization [facility] Rub[facility] Address [address] [place] [address]- Care Team Providers Care Cloud Software Engineer Name Role Phone Elizabeth LEE, Kaden Burns Primary Care Physician [place] [facility] [place] Date(s): 05/22/23 - 05/29/23 [facility] Adult [address] [place] [address]- Encounter Diagnosis Encounter to establish care(Discharge Diagnosis) - 05/22/23 Myalgic encephalomyelitis/chronic fatigue syndrome(Discharge Diagnosis) - 05/22/23 Long COVID(Discharge Diagnosis) - 05/22/23 Obesity (BMI 30.0-34.9)(Discharge Diagnosis) - 05/22/23 Anxiety(Discharge Diagnosis) - 05/22/23 Depression(Discharge Diagnosis) - 05/22/23 Attending Physician: Not on Staff, Attending MD Allergies, Adverse Reactions, Alerts Substance Reaction [...] opioid drug. Start Date: 05/22/23 Status: Ordered Junel 09/23 By Mouth, Daily, 0 Refills, Maintenance, 05/22/23 14:26:00 EDT, Partial fill upon patient request if the prescription is for a schedule II opioid drug. Start Date: 05/22/23 Status: Ordered levothyroxine 150 mcg (0.15 mg) oral tablet 1 tablet = 150 mcg, By Mouth, Daily, 0 Refills, Maintenance, 05/22/23 14:26:00 EDT, Partial fill upon patient request if the prescription is for a schedule II opioid drug. Start Date: 05/22/23 Status: Ordered LORazepam 0.5 mg oral tablet 1 tablet = 0.5 mg, By Mouth, Every 8 hours, 0 Refills, Maintenance, 05/22/23 14:25:00 EDT, Partial fill upon patient request if the prescription is for a schedule II opioid drug. Start Date: 05/22/23 Status: Ordered Problem List Condition Confirmation Course Effective Dates Status Health St at Informant Anxiety Confirmed Active Myalgic encephalomyelitis/ chronic fatigue syndrome Confirmed Active Long COVID Confirmed Active Depression Confirmed Active Obesity (BMI 30.0-34.9) Confirmed Active Encounter to establish care Confirmed Active Diagnosis Diagnosis Type Effective Dates Health Status Clinical Service Informant Encounter to establish care Discharge Diagnosis 05/22/23 Myalgic encephalomyelitis /chronic fatigue syndrome Discharge Diagnosis 05/22/23 Long COVID Discharge Diagnosis 05/22/23 Obesity (BMI 30.0-34.9) Discharge Diagnosis 05/22/23 Anxiety Discharge Diagnosis 05/22/23 Depression Discharge Diagnosis 05/22/23 Vital Signs Most recent to oldest [Reference Range]: 1 Weight 118.3 kg (05/22/23 2:17 PM) Oxygen Saturation [94-100 %] 98 % (05/22/23 2:17 PM) Pulse Rate [55-90 bpm] 78 bpm (05/22/23 2:17 PM) Blood Pressure [90-138/55-84 mm Hg] 137/ 70mm Hg (05/22/23 2:17 PM) Respiratory Rate [16-30 br/min] 20 br/mi n (05/22/23 2:17 PM) Temperature [96.8-100.4 DegF] 98.5 DegF (05/22/23 2:17 PM) Mode of Delivery (Oxygen) Room air (05/22/23 2:17 PM) Blood pressure sites Arm, left (05/22/23 2:17 PM) Temperature Route Oral (05/22/23 2:17 PM) Weight Obtained Via Standing scale (05/22/23 2:17 PM) Social History Social History Type Response Smoking Status Never (less than 100 in lifetime) entered on: 05/22/23 Sex Female Patient Care team information Care Team Personnel Name: Kaden Johnson NP Position: S PCO Associate Professional Member Role: PCP Address: Address: [address] [place] [id number] Care Team Related Persons Name: KADEN PIZANO
--- OUTSIDE RECORDS SUMMARY | 2023-08-02 14:29 | XMS_ITS | Continuity of Care Document ---
Author Name Unknown Organization [facility] Rub[facility] Address [address] [place] [address]- Care Team Providers Care Pants Cutter Name Role Phone Elizabeth LEE, Kaden Burns Primary Care Physician [phone] [place] [facility] [place]23 [place] 06/08/23 [facility] Adult [address] [place] [address]- Allergies, Adverse Reactions, Alerts Substance Reaction Severity [...] Start Date: 05/22/23 Status: Ordered ethinyl estradiol-norethindrone with iron 20 mcg-1 mg oral tablet 1 tablet, By Mouth, Daily, # 84 tablet, 3 Refills, Maintenance, 06/07/23 13:50:00 EDT, Tablet, [facility]/pharmacy #[id number], Partial fill upon patient request if the prescription is for a schedule II opioid drug., 1 tablet By Mouth Daily, 175, cm, 06/07/23 13:0... Start Date: 06/07/23 Status: Ordered levothyroxine 150 mcg (0.15 mg) [...] Confirmation Course Effective Dates Status Health St atus Informant Anxiety Confirmed Active Myalgic encephalomyelitis/c hronic fatigue syndrome Confirmed Active Long COVID Confirmed Active Depression Confirmed Active Severe obesity (BMI 35.0-39.9) with comorbidity Confirmed Active Social History Social History Type Response Smoking Status Never (less than 100 in lifetime) entered on: 05/22/23 Sex Female Patient Care team information Care Team Personnel Name: Kaden Johnson NP Position: S PCO Associate Professional Member Role: PCP Address: Address: [address] [place] [address] Care Team Related Persons Name: KADEN PIZANO
--- OUTSIDE RECORDS SUMMARY | 2023-08-02 14:29 | XMS_ITS | Continuity of Care Document ---
Author Name Unknown Organization [facility] Rubin lt Address [address] [place] [address]- Care Team Providers Care Potato Sorter Name Role Phone Elizabeth LEE, Kaden Burns Primary Care Physician [phone] Encounter [facility] [place] Date(s): 05/09/23 - 06/09/23 [facility] Adult [address] [place] [address]- Attending Physician: Not on Staff, Attending MD [...] 3 Refills, Maintenance, 06/07/23 13:50:00 EDT, Tablet, [facility]/pharmacy #[id number], Partial fill upon patient request if the [...] 3 Refills, Maintenance, 06/07/23 13:40:00 EDT, Capsule, [facility]/pharmacy #[id number], Partial fill upon patient request if [...] Associate Professional Member Role: PCP Address: Address: [address] [place] [address]- Care Team Related Persons Name: KADEN PIZANO
--- OUTSIDE RECORDS SUMMARY | 2023-08-02 14:30 | XMS_ITS | Continuity of Care Document ---
Author Name Unknown Organization [facility] Rub[facility] Address [address] [place] [address]- Care Team Providers Care Organizational Development Specialist Name Role Phone Jaspreet Guerrero DO Primary Care Physician [place] [facility] [place]/23 [facility] Adult [address] [place] [address]- Allergies, Adverse Reactions, Alerts Substance Reaction Severity [...] 3 Refills, Maintenance, 06/20/23 16:11:00 EDT, Tablet, [facility]/pharmacy #[id number], Partial fill upon patient request if the [...] 3 Refills, Maintenance, 06/07/23 13:40:00 EDT, Capsule, [facility]/pharmacy #[id number], Partial fill upon patient request if the prescription is fora schedule II opioid drug., 175, cm, 06/07/23 13:05... 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 Confirmed Active Long COVID [...] Team Personnel Name: Charlette Bryan RN Position: [facility] RN Member Role: Primary Care Nurse Name: Madelaine Suazo Position: S RN Member Role: Primary Care Nurse Name: Izabel Sanchez RN Position: [facility] RN Member Role: Primary Care Nurse Name: Sandra Woodard RN Position: S RN Member Role: Primary Care Nurse Name: Jaspreet Guerrero DO Position: [facility] Physician - Primary Care Member Role: PCP Address: Address: [address] [place] [address]- Care Team Related Persons Name: KADEN PIZANO
--- OUTSIDE RECORDS SUMMARY | 2023-08-02 14:30 | XMS_ITS | Continuity of Care Document ---
Author Name Unknown Organization [facility] Rub[facility] Address [address] [place] [address]- Care Team Providers Care Cigar Making Supervisor Name Role Phone Kaden Johnson NP Primary Care Physician [phone] [place] [facility] [place] 06[place]14/23 [facility] Adult [address] [place] [address]- Encounter Diagnosis Long COVID(Discharge Diagnosis) - 06/07/23 Myalgic encephalomyelitis/chronic fatigue syndrome(Discharge Diagnosis) - 06/07/23 Severe obesity (BMI 35.0-39.9) with comorbidity(Discharge Diagnosis) - 06/07/23 Anxiety(Discharge Diagnosis) - 06/07/23 Depression(Discharge Diagnosis) - 06/07/23 Attending Physician: Kaden Johnson NP Referring Physician: Bryan Reynoso MD Allergies, Adverse Reactions, Alerts Substance Reaction [...] 3 Refills, Maintenance, 06/07/23 13:50:00 EDT, Tablet, [facility]/pharmacy #[id number], Partial fill upon patient request [...] obesity (BMI 35.0-39.9) with comorbidity Confirmed Active Diagnosis Diagnosis Type Effective Dates Health Status Clinical Service Informant Long COVID Discharge Diagnosis 06/07/23 Myalgic encephalomyelitis/ chronic fatigue syndrome Discharge Diagnosis 06/07/23 Severe obesity (BMI 35.0-39.9) with comorbidity Discharge Diagnosis 06/07/23 Anxiety Discharge Diagnosis 06/07/23 Depression Discharge Diagnosis 06/07/23 Vital Signs Most recent to oldest [Reference Range]: 1 Height 175 cm (06/07/23 1:05 PM) Weight 120.6 kg (06/07/23 1:05 PM) Oxygen Saturation [94-100 %] 98 % (06/07/23 1:05 PM) Pulse Rate [55-90 bpm] 74 bpm (06/07/23 1:05 PM) Body Mass Index [18.5-24.99 kg/m2] 39.38 kg/m2 *>HHI* (06/07/23 1:05 PM) Blood Pressure [90-138/55-84 mm Hg] 114/ 52mm Hg (06/07/23 1:05 PM) Respiratory Rate [16-30 br/min] 20 br/mi n (06/07/23 1:05 PM) Temperature [96.8-100.4 DegF] 97.4 DegF (06/07/23 1:05 PM) Mode of Delivery (Oxygen) Room air (06/07/23 1:05 PM) Blood pressure sites Arm, left (06/07/23 1:05 PM) Temperature Route Oral (06/07/23 1:05 PM) Weight Obtained Via Standing scale (06/07/23 1:05 PM) Social History Social History Type Response Smoking Status Never (less than 100 in lifetime) entered on: 05/22/23 Sex Female Patient Care team information Care Team Personnel Name: Kaden Johnson NP Position: S PCO Associate Professional Member Role: PCP Address: Address: [address] [place] [address]- Care Team Related Persons Name: KADEN PIZANO
[2023-08-02 14:43] LABS: Erythrocyte Sedimentation Rate 17 MM/HR (0-20)
[2023-08-02 15:18] LABS: Amphetamine Screen Urine Not Detected (Not Detect); Barbiturates, Urine Not Detected (Not Detect); Benzodiazepines Screen Urine Not Detected (Not Detect); Cannabinoid Screen Urine Not Detected (Not Detect); Cocaine Screen Urine Not Detected (Not Detect); Fentanyl, urine Not Detected (Not Detect); Opiate Screen Urine Not Detected (Not Detect); Phencyclidine Screen Urine Not Detected (Not Detect)
[2023-08-02 15:29] LABS: COVID-19 Test Negative (Negative); IDNOW Serial# 08D9AD1C
[2023-08-02] MEDS: LORazepam 2 MG/ML VIAL 1 MG IVPUSH (15:50)
--- NOTE | 2023-08-02 15:55 | PC.NURSE ---
Neurology at bedside speaking with patient.
--- NOTE | 2023-08-02 16:35 | PC.NURSE ---
Patient and family spoke to this nurse and wanted it in her chart that she did not choose to come to this particular hospital and that she had requested to go to [facility] but EMS brought her to this hospital instead.
[2023-08-02 16:46] VITALS: BP 134/71; PULSE 79; RESP 17; TEMP 36.6; O2SAT 98
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
== END 2023-08-02 16:48 | disposition home or self-care (01) ==
PROVIDERS: Emergency Provider Emergency Medicine; PCP Family Medicine
DX: R25.1 Tremor, unspecified (principal); R47.01 Aphasia; F41.9 Anxiety disorder, unspecified; R53.83 Other fatigue; R53.1 Weakness; Z79.899 Other long term (current) drug therapy; Z11.52 Encounter for screening for COVID-19; Z20.822 Contact with and (suspected) exposure to COVID-19
CPT/HCPCS: 70450; 70496; 70498; 80048; 80076; 80307; 83735; 84484; 85025; 85610; 85652; 86140; 87635; 93005; 96374; 99284; J2060; Q9967

== ENCOUNTER 2024-05-03 12:21 | Outpatient (RCR) | payer OTHER, SELFPAY ==
--- NOTE | 2024-05-21 12:27 | MHC.SP.ADU ---
Referring provider: Sandra Drummond MD Reason for Referral: Aphasia and dysphagia Type of Treatment: 16911 Evaluation Speech Sound Production WITH Language Date of Plan of Treatment: 05/03/24 Onset of Symptoms/Illness: 05/03/21 Date Treatment Started: 05/03/24 Medical Diagnosis: Post COVID-19 condition, unspecified (U09. 9) Primary Speech Language Diagnosis: R41.841 Cognitive communication disorder Secondary Speech Language Diagnosis: R13.19 Other Dysphagia History Ms. Munguia is a 49 year-old referred by Sandra Paige PA-C with concerns of aphasia and dysphagia. She reports the symptoms began immediately after receiving her third Covid-19 vaccine. Reported difficulties include difficulty with word finding, stuttering, dysphagia, voice tremors. She reports a recent Neuropsych testing at [facility]. She moved from [place] one year ago. She reports to have had Speech Therapy there, but cannot recall where or with who at the time of evaluation. 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 She lives with her Aunt and Cousin. She has assistance from [employer]. She states that she is, more confident today . Medical History: Other: Past medical history includes: Anxiety Bilateral sensorineural hearing loss Chronic GERD Colon Polyps Constipation Depression Facial twitching Tinnitus Hypersomnia Hypothyroidism Long COVID Migranes Chronic fatigue Obesity (I) AGUILA Perimenopause PMDD Right-side facial weakness Recent Hospitalizations: No Respiratory Needs: Room Air Patient Orientation: Alert & Oriented x 4 Social History: Employment Status: Unemployed Highest level of education obtained: Completed Bachelor's Current Living Situation: Lives with Aunt and Cousin. Assistive Devices in use: Cane Past Speech Language Therapy: Previous MBSS... Swallowing History: Dysphagia Specific: Dysphagia Nonspecific Comments: Pre-eval Risk for Aspiration: Pre-evaluation Dietary Consistencies: Regular Pre-eval Liquid Intake: Thin Pre-eval Medication Intake: Whole with Liquid Reported Speech, Language, Cognition difficulties: Understanding Attention Memory Cognition Problem Solving Quality of Life: Ms. Munguia describes inability to participate in gainful employment and social anxiety due to her condition. Patient Stated Goal of Speech-Language Therapy: To improve speech, voice, and swallowing . Assessment Speech Production: Aphasic: Fluent Slow Clinical Impression: Impaired Informal Voice Assessment: Voice Loudness: Normal Voice Nasal Resonance: Normal Voice Oral Resonance: Normal Voice Phonatory-based Quality: Normal Voice Pitch: Normal Voice Other Observations: Clinical Impression: Intact Tests of Speech & Lang Adults: Clinical Impression: Did Not Test Tests of Cognition: RBANS Clinical Impression: Intact Observations: The patient participated in select subtests of the Repeatable Battery for the Assessement of Neuropsychological Status - Updated. Subtests were sufficient to yield a Total Scale Score. The RBANS is considered a screening battery for cognitive function and is repeatable for the purpose of evaluating any changes in function. It is intended for use with adolescents and adults, ages 12 to 89 years. Composite domains assessed in this test are: Immediate Memory, Visuospatial/Constructional, Language, Attention, and Delayed Memory. His scores are tabled below: I.) Immediate Memory Index: 87 Ia.) List Learning: -- Scaled Score: 11 Ib.) Story Memory: -- Scaled Score: 5 The Immediate Memory Index measures, ?initial encoding and learning of complex and simple verbal information. Low scores on this index indicated difficulties with verbal learning.? The score is derived from the participant?s performance on the subtests List Learning and Story Memory. List Learning measures, ?rote verbal memory function.? Participants are asked to repeat back a list of ten words presented to them verbally across four trials. Poor performance on this subtest indicates that, ?the examinee may have difficulty learning new verbal information and that repetition may not be beneficial?, if they do not improve across trials. The Story Memory subtest measures, ?memory for conceptually related verbal information.? Here, a short story is read to them across two trials and they are asked to recall details from the story. ?The test is a measure of verbal memory functioning for information that is related?. As with List Learning, participants that do not demonstrate a positive learning curve across trials could indicate, ?difficulty with learning new verbal learning, and that repetition may not help, or that the examinee may have difficulty retrieving new information from memory. II.) Visuospatial/Constructional Index: 92 IIa.) Figure Copy: -- Scaled Score: 11 IIb.) Line Orientation: -- Percentile Group: 17-25 The Visuospatial/Constructional Index is derived from the Figure Copy and Line Orientation subtests. It measures, ?basic visuospatial perception and the ability to copy a design from a model?. Low performance with this index can indicate, ?difficulties with processing and using visuospatial information?, or, ?visual impairments or attention disorders such as enrique neglect?. The Figure Copy subtest requires the examinee to copy a complex geometrical design from a model that is present throughout the task. ?This requires many cognitive skills including visuospatial reasoning, attention to visual details, motor programming, and to a lesser degree, organization and fine-motor ability?. Points are given for specific details, as well as specific placement in the context of the entire image. The Line Orientation subtest measures, ?the examinee?s ability to correctly identify spatial orientation in two-dimensions?. Poor performance indicates significant visuospatial impairments in acuity and attention. III.) Language Index: 90 IIIa.) Picture Naming: -- Percentile Group: 51-75 IIIb.) Semantic Fluency: -- Scaled Score: 7 The Language Index is, ?a measure of expressive language functioning?. Low scores with this subtest ?would indicate difficulties with language functioning? and, ?while the overall score would still indicate language difficulties, the deficits may be more related to fluency versus naming skills.? The Picture Naming subtest is provided by showing the participant a series of 10 simple line drawing and asking them to name them. The Semantic Fluency subtest is a measure of, ?the examinee?s ability to retrieve and express words using a semantic prompt?. In brief, the examinee is given a category and asked to name as many exemplars as they can in 60 seconds. Low scores, ?indicate significantly impaired ability to retrieve and express verbal information from long-term memory stores?. IV.) Attention Index: 72 Lidia.) Digit Span: -- Scaled Score: 6 IVb.) Coding: -- Scaled Score: 5 The Attention Index is a derived from the Digit Span and Coding subtests. It is a measure of, ?simple auditory registration, visual scanning and processing speed. Low scores on this index indicate, ?difficulties with basic attention and processing speed?. Difficulties can vary between the subtests suggesting acute differences between auditory and visual processing and attention. Digit Span is a measure of, ?auditory registration and brief focused attention. Low scores can also indicate difficulties with auditory attention and registration?. In it, the examinee is read a series of single digit numbers and asked to repeat them back in the same order. ?Impairments in auditory acuity can also influence performance on this test?. Coding is a measure of, ?brief, focused, visual attention, visual scanning and processing speed?. In it, the examinee is given a ghotra at the top of the page where each symbol is associated with a different number. The examinee is then asked to fill out as many numbers to corresponding symbols as they can in 90 seconds. In incorporates the notion of diligence and sustained attention as well. Difficulties can indicate problems with, ?processing speed and focused visual attention?. V.) Delayed Memory Index: 84 Va.) List Recall: -- Percentile Group: 51-75 Vb.) List Recognition: -- Percentile Group: <2 Vc.) Story Recall: -- Scaled Score: 7 Vd.) Figure Recall: -- Scaled Score: 11 The Delayed Memory Index is derived by combining the subtest scores for List Recall, Story Recall, and Figure Recall, and cross-referencing them with the List Recognition subtest. Auditory and Visual subtest are combined together. Difference between subtests can be highlighted to provide more specific information about areas of deficit and strength. ?The deficits, may be more related to verbal more than visual memory, or free recall as opposed to recognition memory or general variability in memory functioning.? .) Total Scale Score: 80 (%ile=9th) SUMMARY: Ms. Munguia demonstrated below average scores across domains when compared to her age-matched peers. Her largest area of identified need was in the domain of Attention (SS=72). This is significant in that decreased attention levels lead to limited encoding of new information into working and short-term memory. These test scores are consistent with her report of difficulty remembering information and losing track of their thoughts. This patient will benefit from a short course of Cognitive-Communication treatment to target deficits in immediate and short term memory and promote cognitively stimulating task to promote long-term brain health. 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 Short Term Goals: Goal # : STG1: Pt will demonstrate knowledge of the 5 attention types with >80% accuracy independently. Goal Status: New Goal Goal# : STG2: Pt will complete complex logic puzzles with use of compensatory strategies with >80% accuracy. Goal Status: New Goal Goal # : STG3: Pt will increase short-term recall of 5 item lists with >80% accuracy and minimal assistance. Goal Status: New Goal Goal # : STG4: Pt/Caregiver will complete weekly assigned HEP tasks with >80% accuracy independently. Goal Status: New Goal Recommended Referrals to be Discussed with Primary Care Provider: Neuropsychological Eval Patient Education: Completed: Yes Patient/Caregiver Education: Described Results of Evaluation Patient expressed understanding of evaluation Patient agrees with goals and treatment plan Patient requires further education on strategies Comments/Barriers to Learning: Bean Sorter Clinican/Clinical Fellow: No Supervisory Statement: N/A Speech Language Pathologist: Doug Camarillo M.A., CCC-MEAT PASSER
== END 2024-05-29 15:44 | disposition still patient (30) ==
LOC: HO.SH 12:21
PROVIDERS: Visit Provider Physician Assistant
DX: R13.0 Aphagia (principal); R13.10 Dysphagia, unspecified
CPT/HCPCS: 92523

== ENCOUNTER 2025-01-02 11:11 | Emergency (ER) | payer OTHER, SELFPAY ==
--- NOTE | 2025-01-02 11:13 | ECG_ITS ---
Test Reason : ?tachy Blood Pressure : */* mmHG Vent. Rate : 90 BPM Atrial Rate : 90 BPM P-R Int : 162 ms QRS Dur : 98 ms QT Int : 392 ms P-R-T Axes : 52 39 28 degrees QTcB Int : 479 ms Normal sinus rhythm Normal ECG When compared with ECG of 02-Aug-2023 14:22, No significant change was found Referred By: Generic ED Physician Electronically Signed By: Anil Escalante
[2025-01-02 11:39] VITALS: BP 156/67; PULSE 86; RESP 20; TEMP 36.4; O2SAT 100; BMI 29.6
[2025-01-02 11:41] VITALS: BP 135/82; PULSE 82; RESP 12; O2SAT 99
[2025-01-02 11:45] VITALS: PULSE 92
--- NOTE | 2025-01-02 11:46 | ED_ITS ---
HPI - General Adult General Chief complaint: Arrhythmia/Palpitations Stated complaint: rapid HR, dizziness, sob, facial twitching Time Seen by Provider: 01/02/25 11:46 History of Present Illness ED Provider: Zak HINDS narrative: The patient is a 49-year-old female who reports a history of chronic Lyme disease and dysautonomia. She says that she has been feeling twitchier than usual over the last few days. Today she had an outpatient appointment with speech therapy. She had driven herself to the hospital for this appointment. At speech therapy the therapist was concerned that the patient was having a lot of facial twitching and recommended she come to the emergency room for evaluation. The patient says that she has had similar symptoms in the past but not as severe as this. She says that the last time she had such an episode she was seen here. This was in July of 2023. At that time she was seen in the emergency room and a neurology consult was obtained in the emergency room and she was discharged. No definite diagnosis was made. At that visit she had had a noncontrast head CT and a CT angiogram of the head and neck which were nondiagnostic. Apparently the patient had had previous stroke workups at [facility]. On this occasion the patient denies fever, sweats, chills. No cough or sputum. No abdominal pain, nausea, vomiting. She says that yesterday she had a migraine headache but her headache is not so bad today. Related Data Allergies Allergy/AdvReac Type Severity Reaction Status Date / Time codeine Allergy Unknown Unknown Verified 01/02/25 11:39 Review of Systems 2 Review of Systems: Yes all other systems are reviewed and are negative [facility] Past Medical History Medical History Anxiety Hypothyroidism Social History Social History (Updated 08/02/23 @ 14:22 by Patti William DO) Patient Tobacco Use Status: Never used Tobacco Smoked in Last 30 Days: No Use of substances other than those prescribed or required for medical reasons: No Advance Directives: Yes Advance Directives Information Provided: No Advance Directives on File: No Do you have a plan to hurt others: No Plan Patient : No Physical Exam ED Vital Signs: Vital Signs - 24 hr 01/02/25 11:39 01/02/25 11:41 01/02/25 13:39 Temperature 97.6 F 97.4 F Pulse Rate 86 82 72 Respiratory Rate 20 12 15 Blood Pressure 156/67 H 135/82 129/74 Pulse Oximetry 100 99 100 Oxygen Delivery Method Room Air Room Air Room Air 01/02/25 14:49 Temperature 97.4 F Pulse Rate 72 Respiratory Rate 15 Blood Pressure 129/74 Pulse Oximetry 100 Oxygen Delivery Method Room Air BMI result Body Mass Index 29.6 Const Other: The patient is awake, alert, pleasant, cooperative. She does not appear in acute distress but occasionally her facial muscle seemed to be spasming in unusual ways. This was bilateral. HENMT Other: Face is symmetrical. She occasionally seemed to have unusual movements of her facial muscles on both sides of her face. Otherwise the face and pharynx were unremarkable. Eyes General: appearance normal, both eyes and all related structures Conjunctivae: conjunctivae normal EOM: EOMs intact bilaterally Neck Neck: Yes full ROM Resp Effort & Inspection: normal respiratory effort Auscultation: clear to auscultation bilaterally Cardio Rate: regular rate Rhythm: regular rhythm Heart sounds: S1 normal heart sound present and S2 normal heart sound present GI Other: Abdomen is soft and nontender Skin Other: Skin is dry and unremarkable Neuro Other: The patient is awake and alert with a normal mental status. She seemed to have some unusual movements to her facial muscles, mostly around the mouth, on both sides of her face. Face was otherwise symmetrical. Eye movements were intact. Speech was clear. She moves her extremities symmetrically and appropriately. Extrem Other: No peripheral edema Medications Administered Discontinued Medications Generic Name Dose Route Start Last Admin Trade Name Freq PRN Reason Stop Dose Admin Sodium Chloride 1,000 mls @ 999 mls/hr 01/02/25 12:15 01/02/25 14:50 Ns IV 01/02/25 13:15 Infused .Q1H1M ADRIANNA Infusion Medical Decision Making Medical Decision Making MDM Narrative: The patient is a 49-year-old woman who describes herself as having a history of chronic Lyme disease and dysautonomia who had a speech therapy appointment today. At the speech the therapy appointment the therapist was concerned about some unusual facial movements and recommended the patient come to the emergency room. The patient has had similar symptoms in the past and has had negative neurological workups for stroke. My suspicion for an acutely dangerous process today is very low. Labs were checked to exclude any kind of electrolyte abnormality. The patient was given a L of IV fluids. She was observed. Her symptoms seemed to improve. The patient was reassured that her workup in the emergency room was unremarkable. She felt comfortable being discharged. She has an appointment with the regular doctor tomorrow. Lab Data 01/02/25 12:07 01/02/25 12:07 Labs: Lab Results 01/02/25 Range/Units 12:07 WBC 5.9 (4.8-10.8) X10*3/uL RBC 4.81 (4.20-5.50) X10*6/uL Hgb 15.2 (12.0-16.0) g/dl Hct 44.2 (37.0-47.0) % MCV 91.9 (80.0-98.0) fL MCH 31.6 (27.0-33.0) pg MCHC 34.4 (31.0-35.0) g/dl RDW 12.1 (11.0-16.0) % Plt Count 234 (160-400) X10*3/uL MPV 10.9 (9.4-12.3) fL Immature Gran % (Auto) 0.2 (0.0-0.4) % Neut % (Auto) 61.8 (45-73) % Lymph % (Auto) 29.7 (20-40) % Coke % (Auto) 6.6 (2-11) % Eos % (Auto) 1.0 (0-4) % Baso % (Auto) 0.7 (0-2) % Lymph # (Auto) 1.8 (1.2-4.9) X10*3/uL Coke # (Auto) 0.4 (0.1-1.2) X10*3/uL Eos # (Auto) 0.1 (0.0-0.4) X10*3/uL Baso # (Auto) 0.0 (0.0-0.2) X10*3/uL Abs Immat Gran (auto) 0.01 (0.00-0.03) X10*3/uL Absolute Neuts (auto) 3.7 (2.0-8.3) x10*3/uL Absolute Nucleated RBC 0.000 (0.0-0.012) X10*3/uL Nucleated RBC % (auto) 0.0 (0.0-0.2) /100WBC Sodium 138 (135-145) mmol/L Potassium 3.7 (3.3-5.1) mmol/L Chloride 106 (96-108) mmol/L Carbon Dioxide 24 (22-29) mmol/L Anion Gap 12 (12-20) BUN 13 (9-16) mg/dL Creatinine 0.70 (0.5-1.4) mg/dL Estim Creat Clear Calc 117.7 Estimated GFR > 60 Random Glucose 91 (60-115) mg/dL Calcium 9.1 (8.4-10.2) mg/dL Magnesium 2.4 (1.6-2.6) mg/dL Total Bilirubin 0.4 (0.0-1.0) mg/dL Direct Bilirubin 0.2 (0.0-0.5) mg/dL AST 17 (5-31) U/L ALT 17 (0-31) U/L Alkaline Phosphatase 54 (39-117) U/L C-Reactive Protein 0.17 (< or = 0.50) mg/dL Total Protein 7.1 (6.5-8.0) g/dL Albumin 4.4 (3.5-5.0) g/dL Beta HCG, Quant < 2 mIU/mL Discharge Plan Discharge Clinical Impression: Facial twitching Patient Disposition: Home, Self-Care Additional Instructions: Your testing today does not show any concerning findings. Please continue all your regular regimens. Please follow up with your regular provider tomorrow. Return to the emergency room if significantly worse. Referrals: Sandra Drummond PA [Physician Sales Force Administrator] - Interventions: ED Discharge Assessment Last Done: 01/02/25 14:49 Discharge Date/Time: 01/02/25 14:50 Print Language: Albanian
[2025-01-02] MEDS: 0.9 % Sodium Chloride 1,000 ML 999 ML IV (12:10)
[2025-01-02 12:11] LABS: MANUAL DIFF FLAG NO
[2025-01-02 12:23] LABS: Basophils Percent Auto 0.7 % (0-2); Eosinophils Absolute Auto 0.1 X10*3/uL (0.0-0.4); Hematocrit 44.2 % (37.0-47.0); Hemoglobin 15.2 g/dl (12.0-16.0); Imm Gran Abs Auto 0.01 X10*3/uL (0.00-0.03); Imm Gran Pct Auto 0.2 % (0.0-0.4); Lymphocytes Absolute Auto 1.8 X10*3/uL (1.2-4.9); Lymphocytes Percent Auto 29.7 % (20-40); Mean Corpuscular HGB Conc 34.4 g/dl (31.0-35.0); Mean Corpuscular Hemoglobin 31.6 pg (27.0-33.0); Mean Corpuscular Volume 91.9 fL (80.0-98.0); Mean Platelet Volume 10.9 fL (9.4-12.3); Monocytes Absolute Auto 0.4 X10*3/uL (0.1-1.2); Monocytes Percent Auto 6.6 % (2-11); Neutrophils Absolute Auto 3.7 x10*3/uL (2.0-8.3); Neutrophils Percent Auto 61.8 % (45-73); Platelet Count 234 X10*3/uL (160-400); Red Blood Count 4.81 X10*6/uL (4.20-5.50); Red Cell Distribution Width 12.1 % (11.0-16.0); White Blood Count 5.9 X10*3/uL (4.8-10.8)
[2025-01-02 12:33] LABS: Alanine Aminotransferase 17 U/L (0-31); Albumin Level 4.4 g/dL (3.5-5.0); Alkaline Phosphatase 54 U/L (39-117); Anion Gap 12 (12-20); Aspartate Amino Transferase 17 U/L (5-31); Bilirubin Direct 0.2 mg/dL (0.0-0.5); Bilirubin Total 0.4 mg/dL (0.0-1.0); Blood Urea Nitrogen 13 mg/dL (9-16); C Reactive Protein 0.17 mg/dL (< or = 0.50); Calcium 9.1 mg/dL (8.4-10.2); Carbon Dioxide 24 mmol/L (22-29); Chloride 106 mmol/L (96-108); Creatinine Clr Calc Pharmacy 117.7; Estimated Glomerular Filt Rate > 60; Glucose Random 91 mg/dL (60-115); Magnesium 2.4 mg/dL (1.6-2.6); Potassium 3.7 mmol/L (3.3-5.1); Sodium 138 mmol/L (135-145); Total Protein 7.1 g/dL (6.5-8.0)
[2025-01-02 12:37] LABS: HCG Quantitative < 2 mIU/mL
--- NOTE | 2025-01-02 13:09 | MHC.EDTECH ---
pt ambulated to and from bathroom with assistance. pt slightly tremulous when ambulating, no complaints made.
[2025-01-02 13:39] VITALS: BP 129/74; PULSE 72; RESP 15; TEMP 36.3; O2SAT 100
[2025-01-02 14:49] VITALS: BP 129/74; PULSE 72; RESP 15; TEMP 36.3; O2SAT 100
== END 2025-01-02 14:50 | disposition home or self-care (01) ==
PROVIDERS: Emergency Provider Emergency Medicine; PCP Family Medicine
DX: I49.9 Cardiac arrhythmia, unspecified (principal); R25.3 Fasciculation; R06.02 Shortness of breath; R00.2 Palpitations; R11.0 Nausea; Z79.899 Other long term (current) drug therapy
CPT/HCPCS: 36415; 80048; 80076; 83735; 84702; 85025; 86140; 93005; 96360; 96361; 99284; 99285

== ENCOUNTER → 2025-01-02 11:13 | Outpatient (BNV) | payer OTHER, SELFPAY | PROVIDERS: Emergency Provider Emergency Medicine; PCP Family Medicine; Visit Provider Internal Medicine Cardiovascular Disease | DX: I49.9 Cardiac arrhythmia, unspecified (principal); R00.2 Palpitations | CPT/HCPCS: 93010 ==

== ENCOUNTER 2025-02-27 10:45 | Outpatient (RCR) | payer OTHER, SELFPAY ==
--- NOTE | 2024-09-23 10:56 | MHC.SL.SOA ---
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 Gregor attended 8 sessions between 06/07/24 and 08/30/24. Objective: Data collected 08/30/24: - Completed Visual Analogies for HEP with 70% accuracy. Was unable to complete some items, reviewed with REST ROOM ATTENDANT and completed with moderate assistance. - Reports difficulty with vision, provided referral for neuro-opthamology. - Completed exclusion from category word problems with 100% accuracy. More provided for HEP - Completed a free writing activity which she used a semi-autobiographical exercise to express her feelings about her disease. Assessment: Gregor initially presented with primary deficits in attention, short-term and delayed-recall on standardized testing. She attributes the onset of these symptoms to a Covid-19 infection in 2021. She is eager to participate in Cognitive-Communication Therapy at this time and demonstrates genuine insight into her difficulties which will improve her outcomes. She continues to benefit from a course of outpatient therapy once per week for 45 minute sessions targeting her attention and demonstrated difficulty difficulty with encoding new information. She will be provided HEP every week to facilitate carry of treatment goals at home and in the community. Notes: Patient is discharged from speech therapy services at this time in light of recent staffing changes. REST ROOM ATTENDANT discussed course of treatment with patient over the phone today. Patient expressed she is interested in continuing speech therapy for cognition at this facility when possible. She will be on the waitlist for next available provider. Patient is aware she would be starting with a new evaluation and is in agreement with this treatment plan. Plan: Goal # : STG1: Pt will demonstrate knowledge of the 5 attention types with >80% accuracy independently. Status of Goal: Discharge Goal Goal # : STG2: Pt will complete complex logic puzzles with use of compensatory strategies with >80% accuracy. Status of Goal: Discharge Goal Goal # : STG3: Pt will increase short-term recall of 5 item lists with >80% accuracy and minimal assistance. Status of Goal: Discharge Goal Goal # : STG4: Pt/Caregiver will complete weekly assigned HEP tasks with >80% accuracy independently. Status of Goal: Discharge Goal Seen by: Graduate/Clinical Fellow: No Supervisory Statement: f_Reg Query Last Value , MHC.[facility] Speech Language Pathologist: Giselle Chavez M.A., CCC-REST ROOM ATTENDANT
--- NOTE | 2024-11-28 13:30 | MHC.SL.SOA ---
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 Gregor's DECKER OPERATOR tx had been put on hold previously d/t staffing reasons. She expressed excitement to have the opportunity to continue DECKER OPERATOR tx. She was pleasant and clearly motivated throughout the session. Objective: Gregor was administered the RBANS Form B to better inform treatment goals and to compare to her first evaluation in April 2024 (RBANS Form A). Assessment: The RBANS-Updated Form A assesses aspects of cognitive memory, language, and attention skills. The RBANS is considered a screening battery for cognitive function and is repeatable for the purpose of evaluating any changes in function. It is intended for use with adolescents and adults, ages 12 to 89 years. Composite domains assessed in this test are: Immediate Memory, Visuospatial/Constructional, Language, Attention, and Delayed Memory. Interpretation of test performance is based on normative data on individuals between ages 50-59. Gregor?s performance is summarized below: IMMEDIATE MEMORY List Learning Total Score: 33 Scaled Score: 13 Interpretation: High Average Story Memory Total Score: 23 Scaled Score: 15 Interpretation: Superior Immediate Memory Index Score: 123 Percentile: 94 Interpretation: Superior VISUOSPATIAL CONSTRUCTIONAL Figure Copy Total Score: 18 Scaled Score: 10 Interpretation: Average Line Orientation Total Score: 17 Percentile Group: 26-50 Interpretation: Average Visuospatial/Constructional Index Score: 100 Percentile: 50 Interpretation: Average LANGUAGE Picture Naming Total Score: 10 Percentile Group: 51-75 Interpretation: Average Semantic Fluency Total Score: 13 Scaled Score: 4 Interpretation: Borderline Language Index Score: 82 Percentile: 12 Interpretation: Low Average ATTENTION Digit Span Total Score: 6 Scaled Score: 4 Interpretation: Borderline Coding Total Score: 33 Scaled Score: 5 Interpretation: Borderline Attention Index Score: 64 Percentile: 1 Interpretation: Extremely Low DELAYED MEMORY List Recall Total Score: 7 Percentile Group: 51-75 Interpretation: Average List Recognition Total Score: 20 Percentile Group: 51-75 Interpretation: Average Story Recall Total Score: 12 Scaled Score: 14 Interpretation: Superior Figure Recall Total Score: 9 Scaled Score: 6 Interpretation: Low Average Delayed Memory Index Score: 94 Percentile: 34 Interpretation: Low Average TOTAL Sum of Index Scores: 463 Total Scale Score: 89 Percentile: 23 Interpretation: Low Average Gregor encountered some environmental distractions (i.e. truck beeping outside, construction sounds downstairs) during administration of this assessment. She expressed that environmental distractions make cognitive tasks generally more challenging for her, particularly memory and attention. Gregor commented throughout the test that visual tasks were challenging. She reported her eyes blurring during the coding subtest. Gregor typically wears glasses, however she expressed the need for an upcoming appointment for a new prescription. It is recommended that Gregor schedules an appointment to check her vision to support cognitive tasks in the area of visuospatial/constructional. Notes: Next session is scheduled for 11/28 at 10:45am. Plan to discuss and finalize goals to target next week. Plan: Prior goals all noted below, were previously discharged. Goal # : STG1: Pt will demonstrate knowledge of the 5 attention types with >80% accuracy independently. Status of Goal: Discharge Goal Goal # : STG2: Pt will complete complex logic puzzles with use of compensatory strategies with >80% accuracy. Status of Goal: Discharge Goal Goal # : STG3: Pt will increase short-term recall of 5 item lists with >80% accuracy and minimal assistance. Status of Goal: Discharge Goal Goal # : STG4: Pt/Caregiver will complete weekly assigned HEP tasks with >80% accuracy independently. Status of Goal: Discharge Goal Seen by: Graduate/Clinical Fellow: No Supervisory Statement: f_Reg Query Last Value , [facility] Speech Language Pathologist: Laurie Marie M.A., CCC-DECKER OPERATOR
--- NOTE | 2025-04-11 13:51 | MHC.SL.SOA ---
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 Subjective: Gregor arrived on time to today's session. She was in positive spirits per usual. Objective: Gregor met the following goals: -Recall 10 item wordlist with environmental distraction (immediate & delayed) -Recall 5 digits with environmental distraction (immediate) -Recall sister's phone number -Recall father's phone number Assessment: Gregor expressed satisfaction with the strategies she has learned throughout outpatient speech therapy. Gregor was provided information regarding a speech generating application to download to her phone which she was excited to use to support the times in which she is not able to produce spoken language during a flare-up. Plan: Gregor is to be discharged from outpatient speech therapy at this time. She has met her goals and feels satisfied and confident in using strategies she has learned to support cognitive-linguistic skills. If future concerns arise, it is recommended that Gregor be referred for a follow up evaluation. Goals: Memory -Create emergency card GOAL MET -Recall 5 digits with environmental distraction (immediate) GOAL MET -Recall sister's phone number GOAL MET -Recall 10 item wordlist with environmental distraction (immediate & delayed) GOAL MET Compensatory/coping strategies to support cognition (memory, attention) and ADLs -Strategies for planning/organization GOAL MET -Coping strategies in overwhelming moments (i.e. too much noise/too many conversations interrupting concentration) GOAL MET -Compensatory strategies during foggy times (i.e. flare-ups) to support attention, memory, word retrieval, communication, chew/swallow GOAL MET Seen by: Graduate/Clinical Fellow: No Supervisory Statement: f_Reg Query Last Value , MHC.AU.SIGNATUR Speech Language Pathologist: Laurie Marei M.A., CCC-FAMILY ASSESSMENT WORKER
== END 2025-04-14 15:23 | disposition home or self-care (01) ==
LOC: HO.SH 10:45
PROVIDERS: Visit Provider Physician Assistant
DX: R13.10 Dysphagia, unspecified (principal); R47.01 Aphasia
CPT/HCPCS: 92507